=== PATIENT | male | born 1950 | race African-American/Black ===

== ENCOUNTER 2016-10-20 00:22 | Inpatient (IN) | payer OTHER ==
[2016-10-20] VITALS (7 sets, daily range): BP systolic 139–181; BP diastolic 78–102; PULSE 75–103; RESP 16–20; TEMP 97–98.5; O2SAT 93–98
[~2016-10-20] VITALS: Ht 175.3 cm; Wt 121.1 kg
[~2016-10-20 00:22] MED LIST: AMLO10TA2 PO; ASPI325T PO; LISI2.5T3 PO; MIRA33504 PO; NOVO7030P2 SQ; PRAV20TA2 PO; SENN8.6T8 PO; VENTAER INH
[2016-10-20 03:32] LABS: AUTOMATED NEUTROPHIL # 9.8 TH/MM3 (1.8-7.7); BASOPHIL # 0.1 TH/MM3 (0-0.2); BASOPHIL % 0.6 % (0.0-2.0); EOSINOPHIL # 0.1 TH/MM3 (0-0.4); EOSINOPHIL % 0.5 % (0.0-4.0); HEMATOCRIT 50.1 % (39.0-51.0); HEMO FLAGS DIFF FINAL; MEAN CELL VOLUME 88.2 FL (80.0-100.0); MEAN CORPUSCULAR HEMOGLOBIN 29.9 PG (27.0-34.0); MEAN CORPUSCULAR HGB CONC 33.9 % (32.0-36.0); NEUT % 84.9 % (16.0-70.0); PLATELET COUNT 211 TH/MM3 (150-450); RED BLOOD COUNT 5.68 MIL/MM3 (4.50-5.90); RED CELL DISTRIBUTION WIDTH 15.7 % (11.6-17.2); WHITE BLOOD COUNT 11.5 TH/MM3 (4.0-11.0)
[2016-10-20 03:46] LABS: ALT (GPT) 27 U/L (12-78); ANION GAP 7 MEQ/L (5-15); AST (GOT) 25 U/L (15-37); BICARBONATE 28.6 MEQ/L (21.0-32.0); BLOOD UREA NITROGEN 15 MG/DL (7-18); CHLORIDE 103 MEQ/L (98-107); GLOMERULAR FILTRATION RATE 56 ML/MIN (>89); POTASSIUM 4.8 MEQ/L (3.5-5.1); SODIUM (NA) 139 MEQ/L (136-145)
[2016-10-20 03:48] LABS: ALKALINE PHOSPHATASE 126 U/L (45-117); TOTAL BILIRUBIN ADULT 0.5 MG/DL (0.2-1.0)
[2016-10-20] MEDS ORDERED: SODIUM CHLORID 0.9% 500 ML INJ 500 ML IV ONE (04:30)
[2016-10-20] MEDS ORDERED: ONDANSETRON HCL 4 MG/2 ML VIAL IV PUSH ONE (04:30)
[2016-10-20] MEDS ORDERED: MORPHINE SULFATE 4 MG/ML INJ IV PUSH ONE (05:15)
[2016-10-20] MEDS ORDERED: IOHEXOL 350 MG/ML 10 ML VIAL (for RAD DIAG) IV ONE (05:19)
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
[2016-10-20] MEDS ORDERED: SODIUM CHLORIDE 0.9% FLUSH 5 ML FLUSH FLUSH PRN (06:15)
[2016-10-20] MEDS ORDERED: ONDANSETRON HCL 4 MG/2 ML VIAL IVP PRN (06:15)
[2016-10-20] MEDS ORDERED: NALOXONE HCL 0.4 MG/ML AMP IV PRN (06:15)
[2016-10-20] MEDS: SODIUM CHLOR 0.9% 1000 ML INJ 1,000 ML IV SCH ×2 (06:30→23:43)
[2016-10-20] MEDS: MORPHINE SULFATE 4 MG/ML INJ IV PUSH PRN ×6 (07:49→23:38)
[2016-10-20 08:08] LABS: BACTERIA, URINE RARE /hpf; BLOOD, URINE NEG (NEG); GLUCOSE,URINE 1000 mg/dL (NEG); KETONE, URINE 10 mg/dL (NEG); MUCUS URINE FEW /lpf (OCC); NITRITE,URINE NEG (NEG); SQUAMOUS EPITHELIAL CELL URINE <1 /hpf (0-5); URINE COLOR YELLOW (YELLW/STRAW)
[2016-10-20 08:16] LABS: COMMENT (UR) CULT NOT INDICATED; CULTURE IF INDICATED CULT NOT INDICATED
[2016-10-20] MEDS: SODIUM CHLORIDE 0.9% FLUSH 5 ML FLUSH FLUSH SCH ×2 (09:00→20:37)
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
[2016-10-20] MEDS ORDERED: GLUCAGON 1 MG/ML VIAL OTHER PRN (17:15)
[2016-10-20] MEDS ORDERED: DEXTROSE 50% IN WATER 50 ML VIAL(D50) IV PUSH PRN (17:15)
[2016-10-20] MEDS: LOW DOSE INSULIN NOVOLOG SUPPLEMENTAL SCALE SQ SCH ×2 (17:17→20:43)
--- NOTE | 2016-10-20 18:47 | EKG ---
Date Performed: 10/20/2016 Time Performed: 04:58:31 PTAGE: 66 years EKG: ATRIAL FIBRILLATION WITH RAPID VENTRICULAR RESPONSE NONSPECIFIC T-WAVE ABNORMALITY ABNORMAL ECG PREVIOUS TRACING : 08/29/2016 09.56 Compared to prior tracing no significant change DOCTOR: Ace Slater Interpretating Date/Time 10/20/2016 18:47:28
[2016-10-21] VITALS (11 sets, daily range): BP systolic 116–179; BP diastolic 64–102; PULSE 75–92; RESP 17–22; TEMP 97.6–98.9; O2SAT 92–97
[2016-10-21] MEDS: LOW DOSE INSULIN NOVOLOG SUPPLEMENTAL SCALE SQ SCH ×4 (05:26→21:00)
[2016-10-21] MEDS: MORPHINE SULFATE 4 MG/ML INJ IV PUSH PRN ×6 (05:29→22:32)
[2016-10-21 07:16] LABS: AUTOMATED NEUTROPHIL # 5.3 TH/MM3 (1.8-7.7); BASOPHIL % 0.5 % (0.0-2.0); EOSINOPHIL # 0.2 TH/MM3 (0-0.4); EOSINOPHIL % 2.8 % (0.0-4.0); HEMATOCRIT 43.5 % (39.0-51.0); HEMO FLAGS DIFF FINAL; LYMPHOCYTE # 1.2 TH/MM3 (1.0-4.8); MEAN CELL VOLUME 90.6 FL (80.0-100.0); MEAN CORPUSCULAR HEMOGLOBIN 29.3 PG (27.0-34.0); MEAN CORPUSCULAR HGB CONC 32.4 % (32.0-36.0); NEUT % 72.7 % (16.0-70.0); PLATELET COUNT 155 TH/MM3 (150-450); WHITE BLOOD COUNT 7.3 TH/MM3 (4.0-11.0)
[2016-10-21 07:45] LABS: BICARBONATE 28.3 MEQ/L (21.0-32.0); POTASSIUM 4.2 MEQ/L (3.5-5.1)
[2016-10-21] MEDS: SODIUM CHLORIDE 0.9% FLUSH 5 ML FLUSH FLUSH SCH ×2 (08:22→22:35)
[2016-10-21] MEDS ORDERED: ENALAPRILAT 1.25 MG/ML VIAL IV PUSH PRN (09:00)
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
[2016-10-21] MEDS: METOCLOPRAMIDE HCL 10 MG/2 ML VIAL IM SCH ×2 (10:12→13:35)
[2016-10-21] MEDS: SODIUM CHLOR 0.9% 1000 ML INJ 1,000 ML IV SCH ×2 (11:29→22:09)
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
[2016-10-21] MEDS ORDERED: cloNIDine HCL 0.1 MG TAB PO PRN (13:30)
[2016-10-21] MEDS: METOCLOPRAMIDE HCL 10 MG/2 ML VIAL IV SCH (22:43)
[2016-10-22] VITALS: BP 127/60; PULSE 60; RESP 15; TEMP 97.1; O2SAT 93
[2016-10-22 04:00] VITALS: BP 120/58; PULSE 61; RESP 16; TEMP 96.9; O2SAT 93
[2016-10-22] MEDS: MORPHINE SULFATE 4 MG/ML INJ IV PUSH PRN ×5 (05:51→23:49)
[2016-10-22] MEDS: METOCLOPRAMIDE HCL 10 MG/2 ML VIAL IV SCH ×3 (05:54→20:22)
[2016-10-22] MEDS: LOW DOSE INSULIN NOVOLOG SUPPLEMENTAL SCALE SQ SCH ×4 (06:00→20:38)
[2016-10-22 07:35] VITALS: BP 144/71; PULSE 88; RESP 22; TEMP 96.9; O2SAT 96
[2016-10-22] MEDS: SODIUM CHLORIDE 0.9% FLUSH 5 ML FLUSH FLUSH SCH ×2 (08:39→20:25)
[2016-10-22] MEDS: SODIUM CHLOR 0.9% 1000 ML INJ 1,000 ML IV SCH (08:44)
[2016-10-22 08:45] VITALS: PULSE 85
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
[2016-10-22 12:00] VITALS: BP 146/72; PULSE 80; RESP 22; TEMP 97.1; O2SAT 92
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
[2016-10-22] MEDS: DEXT 5%-NACL 0.45% 1000 ML INJ 1,000 ML IV SCH ×2 (14:13→23:54)
[2016-10-22 20:00] VITALS: BP 137/72; PULSE 65; RESP 16; TEMP 98; O2SAT 96
[2016-10-23] VITALS: BP 153/80; PULSE 80; RESP 18; TEMP 96.7; O2SAT 95
[2016-10-23 03:05] VITALS: PULSE 65
[2016-10-23 04:00] VITALS: BP 132/70; PULSE 58; RESP 15; TEMP 96.6; O2SAT 96
[2016-10-23] MEDS: METOCLOPRAMIDE HCL 10 MG/2 ML VIAL IV SCH (05:58)
[2016-10-23] MEDS: LOW DOSE INSULIN NOVOLOG SUPPLEMENTAL SCALE SQ SCH ×2 (06:31→12:08)
[2016-10-23 08:00] VITALS: PULSE 80
[2016-10-23 08:33] VITALS: BP 162/89; PULSE 70; RESP 18; TEMP 97.9; O2SAT 91
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
[2016-10-23] MEDS: SODIUM CHLORIDE 0.9% FLUSH 5 ML FLUSH FLUSH SCH (09:00)
[2016-10-23] MEDS: DEXT 5%-NACL 0.45% 1000 ML INJ 1,000 ML IV SCH (10:17)
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
[2016-10-23 12:21] VITALS: BP 159/84; PULSE 51; RESP 18; TEMP 97.6; O2SAT 95
== END 2016-10-23 13:49 | disposition home or self-care (01) | DRG 389 ==
LOC: NEPE 00:22 → NEDA 06:01 → NEDH 09:35 → HOCB 14:37
PROVIDERS: ADMIT Hospitalist; ATTEND Hospitalist
DX: K56.60 Unspecified intestinal obstruction (principal); N17.9 Acute kidney failure, unspecified; E11.65 Type 2 diabetes mellitus with hyperglycemia; E83.52 Hypercalcemia; N28.1 Cyst of kidney, acquired; I10 Essential (primary) hypertension; J42 Unspecified chronic bronchitis; M19.90 Unspecified osteoarthritis, unspecified site; Z90.5 Acquired absence of kidney; Z79.4 Long term (current) use of insulin
CPT/HCPCS: 74020; 74177; 80048; 80053; 81001; 82948; 83605; 83690; 85025; 93005; 96361; 96374; 96375; J1815; J2270; J2405; J2765; J7030; J7040; Q9967

== ENCOUNTER 2016-10-25 09:48 | Emergency (ER) | payer OTHER ==
[~2016-10-25] VITALS: Ht 175.3 cm; Wt 120.0 kg
[2016-10-25 10:08] VITALS: BP 184/114; PULSE 92; RESP 20; TEMP 97.8; O2SAT 93
[2016-10-25 10:20] VITALS: BP 190/104; PULSE 96; RESP 20; O2SAT 96
[2016-10-25] MEDS ORDERED: SODIUM CHLOR 0.9% 1000 ML INJ 1,000 ML IV SCH (10:37)
[2016-10-25] MEDS ORDERED: ONDANSETRON HCL 4 MG/2 ML VIAL IVP ONE (10:45)
[2016-10-25] MEDS ORDERED: MORPHINE SULFATE 4 MG/ML INJ IV PUSH ONE ×2 (10:45→11:45)
[2016-10-25] MEDS ORDERED: SODIUM CHLORIDE 0.9% FLUSH 5 ML FLUSH IVF PRN (10:45)
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
[2016-10-25 11:22] LABS: AUTOMATED NEUTROPHIL # 4.7 TH/MM3 (1.8-7.7); BASOPHIL % 0.3 % (0.0-2.0); EOSINOPHIL # 0.1 TH/MM3 (0-0.4); EOSINOPHIL % 2.3 % (0.0-4.0); HEMATOCRIT 46.8 % (39.0-51.0); HEMO FLAGS DIFF FINAL; LYMPH % 13.9 % (9.0-44.0); LYMPHOCYTE # 0.9 TH/MM3 (1.0-4.8); MEAN CELL VOLUME 88.8 FL (80.0-100.0); MEAN CORPUSCULAR HEMOGLOBIN 29.5 PG (27.0-34.0); MEAN CORPUSCULAR HGB CONC 33.2 % (32.0-36.0); MONO % 7.2 % (0.0-8.0); NEUT % 76.3 % (16.0-70.0); PLATELET COUNT 176 TH/MM3 (150-450); RED BLOOD COUNT 5.26 MIL/MM3 (4.50-5.90); RED CELL DISTRIBUTION WIDTH 15.6 % (11.6-17.2); WHITE BLOOD COUNT 6.1 TH/MM3 (4.0-11.0)
[2016-10-25 11:38] LABS: BICARBONATE 26.5 MEQ/L (21.0-32.0)
[2016-10-25 11:41] LABS: POTASSIUM 4.6 MEQ/L (3.5-5.1)
[2016-10-25] MEDS ORDERED: DIATRIZOATE MEGLUM/DIATRIZOATE SOD 9 ML CUP ONE (12:02)
[2016-10-25] MEDS ORDERED: IOHEXOL 350 MG/ML 10 ML VIAL (for RAD DIAG) IV ONE (13:38)
--- NOTE | 2016-10-25 14:18 | RADRPT ---
EXAM DATE/TIME: 10/25/2016 13:20 [facility] COMPARISON: CT ABDOMEN & PELVIS W CONTRAST, September 20, 2015, 20:35. CT ABDOMEN & PELVIS W CONTRAST, October, 5:15. INDICATIONS : Worsening lower abdomen pain for two days. IV CONTRAST: 95 cc Omnipaque 350 (iohexol) IV ORAL CONTRAST: No oral contrast ingested. RADIATION DOSE: 26.25 CTDIvol (mGy) MEDICAL HISTORY : Hypertension. diabetes SURGICAL HISTORY : None. ENCOUNTER: Initial ACUITY: 2 days PAIN SCALE: 10/10 LOCATION: Bilateral lower quadrant TECHNIQUE: Volumetric scanning of the abdomen and pelvis was performed. Using automated exposure control and ad justment of the mA and/or kV according to patient size, radiation dose was kept as low as reasonably achievable to obtain optimal diagnostic quality images. FINDINGS: LOWER LUNGS: Stable sub-centimeters groundglass density in the right middle lobe. Lung bases are otherwise clear LIVER: Punctate granulomatous type calcification in the right hepatic lobe. Otherwise, homogeneous density. There is no dilation of the biliary tree. No calcified gallstones. SPLEEN: Normal size without lesion. PANCREAS: Within normal limits. KIDNEYS: Patient status post right nephrectomy for parapelvic and cortical cysts on the remaining left kidney are stable ADRENAL GLANDS: Within normal limits. VASCULAR: There is no aortic aneurysm. BOWEL/MESENTERY: Focal area of pericolonic inflammatory changes in the region of the sigmoid colon correspond to a foc al area of what appears to be desiccated stool with decompression of the colon proximal and distal to this location. Minimal, scattered diverticula. ABDOMINAL WALL: Small umbilical hernia measures 2.8 cm in diameter it only contains fat. RETROPERITONEUM: There is no lymphadenopathy. BLADDER: No wall thickening or mass. REPRODUCTIVE: Within normal limits. INGUINAL: There is no lymphadenopathy or hernia. MUSCULOSKELETAL: Within normal limits for patient age. CONCLUSION: 1. Minimal pericolonic stranding in the region of the sigmoid. Focal stool ball in the same area pers ists over the past 5 days and may represent a focal area of atony associated with uncomplicated diver ticulitis. 2. Patient is status post right nephrectomy. Benign-appearing cortical and parapelvic cysts on the le ft. 3. A 2.8 cm paraumbilical hernia only contains fat. 4. Stable 7 mm groundglass nodule in the right middle lobe is nonspecific. Recommend followup in 6 mo nths to ensure stability. Yusuf Rae MD on October 25, 2016 at 14:00 Board Certified Radiologist. This report was verified electronically.
[2016-10-25] MEDS ORDERED: COLY4000S PO (14:30)
[2016-10-25 14:50] VITALS: BP 189/91
== END 2016-10-25 14:50 | disposition home or self-care (01) ==
LOC: NEPA 09:48
DX: R10.84 Generalized abdominal pain (principal); I10 Essential (primary) hypertension; E11.9 Type 2 diabetes mellitus without complications; Z79.4 Long term (current) use of insulin; Z87.39 Personal history of other diseases of the musculoskeletal system and connective tissue; Z87.19 Personal history of other diseases of the digestive system; Z87.448 Personal history of other diseases of urinary system
CPT/HCPCS: 74177; 80048; 83605; 85025; 96374; 96375; 99284; J2270; J2405; J7030; Q9963; Q9967

== ENCOUNTER 2016-10-28 12:13 | Inpatient (IN) | payer OTHER ==
[~2016-10-28] VITALS: Ht 175.3 cm; Wt 120.0 kg
[~2016-10-28 12:13] MED LIST changes: +COLY4000S PO
[2016-10-28 12:15] VITALS: BP 180/106; PULSE 98; RESP 28; TEMP 98.7; O2SAT 93
[2016-10-28 20:00] VITALS: BP 156/88; PULSE 100; RESP 18; O2SAT 96
[2016-10-28] MEDS ORDERED: SODIUM CHLORIDE 0.9% FLUSH 5 ML FLUSH IVF PRN (20:00)
[2016-10-28] MEDS ORDERED: methylPREDNISolone SOD SUCC 125 MG/2 ML VIAL IVP ONE (20:00)
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
[2016-10-28] MEDS: RESP: ALBUTEROL 2.5 MG/IPRATROPIUM 0.5 MG NEB (SCH) INH ×3 (20:13→20:51)
--- NOTE | 2016-10-28 20:24 | RADRPT ---
EXAM DATE/TIME: 10/28/2016 19:59 [facility] COMPARISON: CHEST SINGLE AP, January 31, 2016, 5:09. INDICATIONS : Short of breath MEDICAL HISTORY : Hypertension. Diabetes mellitus type II. SURGICAL HISTORY : None. ENCOUNTER: Initial ACUITY: 2 days PAIN SCORE: 0/10 LOCATION: Bilateral chest FINDINGS: A single view of the chest demonstrates the lungs to be symmetrically aerated without evidence of mas s, infiltrate or effusion. The cardiomediastinal contours are unremarkable. Osseous structures are intact. CONCLUSION: No acute disease. Vaibhav Galeano MD on October 28, 2016 at 20:22 Board Certified Radiologist. This report was verified electronically.
[2016-10-28 21:06] LABS: AUTOMATED NEUTROPHIL # 3.6 TH/MM3 (1.8-7.7); BASOPHIL % 0.3 % (0.0-2.0); EOSINOPHIL # 0.1 TH/MM3 (0-0.4); EOSINOPHIL % 1.1 % (0.0-4.0); HEMATOCRIT 44.6 % (39.0-51.0); HEMO FLAGS DIFF FINAL; LYMPH % 19.9 % (9.0-44.0); LYMPHOCYTE # 1.1 TH/MM3 (1.0-4.8); MEAN CELL VOLUME 89.1 FL (80.0-100.0); MEAN CORPUSCULAR HEMOGLOBIN 29.3 PG (27.0-34.0); MEAN CORPUSCULAR HGB CONC 32.8 % (32.0-36.0); MONO % 14.2 % (0.0-8.0); NEUT % 64.5 % (16.0-70.0); PLATELET COUNT 185 TH/MM3 (150-450); RED BLOOD COUNT 5.01 MIL/MM3 (4.50-5.90); RED CELL DISTRIBUTION WIDTH 15.9 % (11.6-17.2); WHITE BLOOD COUNT 5.7 TH/MM3 (4.0-11.0)
[2016-10-28 21:12] LABS: PROTHROMBIN TIME - PATIENT 10.7 SEC (9.8-11.6)
[2016-10-28 21:19] LABS: BICARBONATE 28.6 MEQ/L (21.0-32.0)
[2016-10-28 21:35] LABS: CKMB 2.4 NG/ML (0.5-3.6)
[2016-10-28] MEDS ORDERED: IODIXANOL 320 MG/ML 10 ML VIAL (for Rad CT) IV ONE (21:50)
[2016-10-28 22:00] VITALS: BP 159/91; PULSE 105; RESP 18; O2SAT 95
[2016-10-28] MEDS ORDERED: KETOROLAC TROMETHAMINE 30 MG/ML (IVP) VIAL IV PUSH ONE (22:15)
--- NOTE | 2016-10-28 22:24 | RADRPT ---
EXAM DATE/TIME: 10/28/2016 21:43 [facility] COMPARISON: CT ABDOMEN & PELVIS W CONTRAST, October 25, 2016, 13:20. INDICATIONS : Nausea, vomiting and abdominal pain. IV CONTRAST: 50 cc Visipaque (iodixanol) IV ORAL CONTRAST: No oral contrast ingested. RADIATION DOSE: 22.38 CTDIvol (mGy) MEDICAL HISTORY : Arthritis. Diabetes mellitus type 1. SURGICAL HISTORY : Nephrectomy, right. ENCOUNTER: Initial ACUITY: 1 day PAIN SCALE: 5/10 LOCATION: Bilateral lower quadrant TECHNIQUE: Volumetric scanning of the abdomen and pelvis was performed. Using automated exposure control and adjustment of the mA and/or kV according to patient size, radiation dose was kept as low as reasonably achievable to obtain optimal diagnostic quality images. FINDINGS: There is fatty infiltration of the liver. There is a calcified granuloma seen at the li miranda. There is a small subcentimeter hyperdensity identified in the superior aspect of the right lobe of the liver. This is nonspecific. Statistically it likely represents a cyst or hemangioma. The s pleen, pancreas and adrenal glands are normal. The patient is status post right nephrectomy. There is a 3.3 cm cystic area seen in the central aspect of the left kidney likely representing a prominent parapelvic cyst. Hydronephrosis is not seen. There does appear to be dilatation of the small bowel in the mid abdomen. There is a suspected area of focal stenosis at the mid small bowel. There does appear to be debris seen in the small bowel adj acent to this area of stenosis. The colon is not distended. There is some minimal thickening of the left paracolic gutter. The pelvic structures appear grossly intact. The lung bases are clear. The bony structures are grossly intact. There is some degenerative change in the lumbar spine. There i s an umbilical hernia containing only mesenteric fat. CONCLUSION: 1. Dilated small bowel with a possible area of transition in the mid small bowel concerning for some degree of small bowel obstruction. There appears to be a focal area of stenosis at the mid small amber l. 2. Fatty infiltration of the liver with a suspected small cyst or hemangioma in the right lobe of the liver. 3. Status post right nephrectomy. 4. 3.3 cm suspected left parapelvic cyst. Vaibhav Galeano MD on October 28, 2016 at 22:08 Board Certified Radiologist. This report was verified electronically.
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
[2016-10-29] VITALS (12 sets, daily range): BP systolic 120–187; BP diastolic 83–108; PULSE 79–102; RESP 18–26; TEMP 97.4–98.6; O2SAT 94–100
[2016-10-29] MEDS ORDERED: ONDANSETRON HCL 4 MG/2 ML VIAL IVP PRN
[2016-10-29] MEDS ORDERED: ACETAMINOPHEN 1000 MG/100 ML VIAL IV PRN
[2016-10-29] MEDS ORDERED: BISACODYL 10 MG SUPP PR PRN
[2016-10-29] MEDS ORDERED: GLUCAGON 1 MG/ML VIAL OTHER PRN
[2016-10-29] MEDS ORDERED: SODIUM CHLORIDE 0.9% FLUSH 5 ML FLUSH FLUSH PRN
[2016-10-29] MEDS ORDERED: MORPHINE SULFATE 4 MG/ML INJ IV PRN
[2016-10-29] MEDS ORDERED: DEXTROSE 50% IN WATER 50 ML VIAL(D50) IV PUSH PRN
[2016-10-29 00:41] LABS: BLOOD GAS BASE EXCESS 0.2 mmol/L (-2-2); BLOOD GAS CARBOXYHEMOGLOBIN 1.3 % (0-4); BLOOD GAS HCO3 25 mmol/L (22-26); BLOOD GAS METHEMOGLOBIN 0.9 % (0-2); BLOOD GAS O2 HGB SATURATION 95 % (90-100); BLOOD GAS OXYGEN CONTENT 20.5 Vol % (12.0-20.0); BLOOD GAS PCO2 42 mmHg (38-42); BLOOD GAS PO2 95 mmHg (61-120); BLOOD GAS TOTAL HGB 15.2 G/DL (12.0-16.0); TEMP CORR TO 98.6
[2016-10-29 00:42] LABS: CRITICAL VALUE NO; DRAW SITE RT RADIAL; LITER FLOW 2 L/M; NUMBER OF ARTERIAL PUNCTURES 1; OXYGEN DEVICE NASAL CANNULA; STAT YES; ULNAR PULSE PRESENT
--- NOTE | 2016-10-29 01:13 | RADRPT ---
EXAM DATE/TIME: 10/29/2016 00:43 [facility] COMPARISON: No previous studies available for comparison. INDICATIONS : Evaluate for NG tube placement. MEDICAL HISTORY : None. SURGICAL HISTORY : None. ENCOUNTER: Initial ACUITY: 1 day PAIN SCORE: 0/10 LOCATION: Abdomen FINDINGS: Examination of the abdomen demonstrates gaseous distention of the small bowel with air fluid levels m ost consistent with ileus .There are no findings of small bowel obstruction. No free air is identifie d. No organomegaly is evident. Nasogastric tube is coiled in the esophagus. CONCLUSION: No evidence of obstruction.Nasogastric tube coiled in the esophagus David Farley MD on October 29, 2016 at 1:11 Board Certified Radiologist. This report was verified electronically.
[2016-10-29] MEDS: MORPHINE SULFATE 4 MG/ML INJ IV PRN ×7 (01:40→23:14)
[2016-10-29] MEDS: PANTOPRAZOLE SODIUM 40 MG VIAL IV PUSH SCH ×3 (01:57→23:24)
[2016-10-29] MEDS: SODIUM CHLOR 0.9% 1000 ML INJ 1,000 ML IV SCH ×3 (02:37→12:38)
[2016-10-29 05:19] LABS: BASOPHIL % 0.2 % (0.0-2.0); EOSINOPHIL % 0.1 % (0.0-4.0); HEMATOCRIT 43.6 % (39.0-51.0); HEMO FLAGS DIFF FINAL; LYMPH % 5.3 % (9.0-44.0); LYMPHOCYTE # 0.3 TH/MM3 (1.0-4.8); MEAN CELL VOLUME 90.3 FL (80.0-100.0); MEAN CORPUSCULAR HEMOGLOBIN 29.2 PG (27.0-34.0); MEAN CORPUSCULAR HGB CONC 32.4 % (32.0-36.0); MONO % 2.7 % (0.0-8.0); NEUT % 91.7 % (16.0-70.0); PLATELET COUNT 172 TH/MM3 (150-450); RED BLOOD COUNT 4.82 MIL/MM3 (4.50-5.90); RED CELL DISTRIBUTION WIDTH 15.9 % (11.6-17.2); WHITE BLOOD COUNT 5.4 TH/MM3 (4.0-11.0)
[2016-10-29 05:32] LABS: ALKALINE PHOSPHATASE 108 U/L (45-117); ALT (GPT) 30 U/L (12-78); ANION GAP 10 MEQ/L (5-15); AST (GOT) 21 U/L (15-37); BICARBONATE 25.7 MEQ/L (21.0-32.0); BLOOD UREA NITROGEN 13 MG/DL (7-18); CHLORIDE 101 MEQ/L (98-107); GLOMERULAR FILTRATION RATE 52 ML/MIN (>89); POTASSIUM 4.5 MEQ/L (3.5-5.1); SODIUM (NA) 137 MEQ/L (136-145); TOTAL BILIRUBIN ADULT 0.3 MG/DL (0.2-1.0)
[2016-10-29] MEDS: RESP: ALBUTEROL 2.5 MG/IPRATROPIUM 0.5 MG NEB (PRN) NEB ×2 (07:38→11:19)
[2016-10-29] MEDS: INSULIN ASPART SUPPLEMENTAL SCALE SQ SCH ×5 (09:08→21:00)
[2016-10-29] MEDS: SODIUM CHLORIDE 0.9% FLUSH 5 ML FLUSH FLUSH SCH ×2 (09:11→19:59)
--- NOTE | 2016-10-29 13:07 | EKG ---
Date Performed: 10/28/2016 Time Performed: 20:40:10 PTAGE: 66 years EKG: Sinus rhythm WITH OCCASIONAL SUPRAVENTRICULAR PREMATURE COMPLEXES NONSPECIFIC T-WAVE ABNORMALITY POSSIBLE INFERIO R INJURY, AGE UNDETERMINED POOR R WAVE PROGRESSION IN THE ANTERIOR PRECORDIUM LARGELY UNCHANGED FROM PRIOR TRACING. BORDERLINE ECG PREVIOUS TRACING : 10/28/2016 20.38 DOCTOR: Eulogio Roberts Interpretating Date/Time 10/29/2016 13:07:31
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
[2016-10-29] MEDS ORDERED: cloNIDine HCL 0.1 MG TAB PO PRN (20:00)
[2016-10-29] MEDS: INSULIN DETEMIR 100 UNITS/ML VIAL SQ SCH (21:00)
--- NOTE | 2016-10-29 22:25 | MB ---
cc: JEFF CARO M.D. DATE OF CONSULTATION 10/29/2016 REASON FOR CONSULTATION Small bowel obstruction. HISTORY OF PRESENT ILLNESS The patient is a 56-year-old -[place] male who has had previous admissions for bowel obstruction in May of last year, August last year, October 20 of this year and currently. The patient had CT scan of the abdomen, pelvis which demonstrates dilatation of the small bowel in the mid abdomen with a suspected area of focal stenosis in the mid small bowel. There is some minimal thickening of the left paracolic gutter as well. CT last week demonstrated a pericolonic inflammatory changes in the region of the sigmoid colon and small umbilical hernia. This did not appear to be small bowel obstruction at that time. The CT on October 20 demonstrates abnormal dilated loops of small bowel overall similar to the CT exam on August 30. Laboratory values demonstrate WBCs of 5.4. Chemistries demonstrate BUN of 13, creatinine of 1.62. Coags demonstrate INR of 1.0. PHYSICAL EXAMINATION GENERAL: An -[place] male who is slightly uncomfortable. VITAL SIGNS: BP 155/91, pulse 79, respirations 18, temperature 97.4, 94% saturation on room air. HEENT: Sclerae anicteric. Pupils reactive. NECK: Supple. Throat is clear. CHEST: Clear to auscultation. ABDOMEN: Soft, distended with a midline incision scar. ASSESSMENT Partial small-bowel obstruction, recurrent. PLAN I have discussed with the patient and his significant other the considered need for operative intervention given the frequency of his admissions recently. He does not require any surgery today as he is has a normal white count and is not acutely ill. I have recommended they consider surgery next week some time as he appears to have a mild bronchitis. I have discussed preliminarily some risks of the procedure with him having an increased risk due to his obesity, sleep apnea and diabetes. We will follow him with you. MD RADHA Moreira/ /9:43 PM /10:14 PM
[2016-10-30] VITALS: BP 144/78; PULSE 80; RESP 18; TEMP 96.4; O2SAT 96
[2016-10-30 02:25] VITALS: O2SAT 98
[2016-10-30] MEDS: SODIUM CHLOR 0.9% 1000 ML INJ 1,000 ML IV SCH ×4 (04:37→17:30)
[2016-10-30] MEDS: MORPHINE SULFATE 4 MG/ML INJ IV PRN ×5 (04:45→21:33)
[2016-10-30] MEDS: INSULIN ASPART SUPPLEMENTAL SCALE SQ SCH ×4 (04:45→21:40)
[2016-10-30 05:06] LABS: AUTOMATED NEUTROPHIL # 5.7 TH/MM3 (1.8-7.7); BASOPHIL % 0.2 % (0.0-2.0); EOSINOPHIL % 0.3 % (0.0-4.0); HEMATOCRIT 40.4 % (39.0-51.0); HEMO FLAGS DIFF FINAL; LYMPH % 14.2 % (9.0-44.0); LYMPHOCYTE # 1.1 TH/MM3 (1.0-4.8); MEAN CELL VOLUME 89.9 FL (80.0-100.0); MEAN CORPUSCULAR HEMOGLOBIN 28.9 PG (27.0-34.0); MEAN CORPUSCULAR HGB CONC 32.2 % (32.0-36.0); MONO % 10.1 % (0.0-8.0); NEUT % 75.2 % (16.0-70.0); PLATELET COUNT 179 TH/MM3 (150-450); RED CELL DISTRIBUTION WIDTH 15.9 % (11.6-17.2); WHITE BLOOD COUNT 7.6 TH/MM3 (4.0-11.0)
[2016-10-30 05:32] LABS: ALKALINE PHOSPHATASE 86 U/L (45-117); ALT (GPT) 23 U/L (12-78); ANION GAP 6 MEQ/L (5-15); AST (GOT) 16 U/L (15-37); BICARBONATE 29.2 MEQ/L (21.0-32.0); BLOOD UREA NITROGEN 15 MG/DL (7-18); CHLORIDE 108 MEQ/L (98-107); GLOMERULAR FILTRATION RATE 74 ML/MIN (>89); MAGNESIUM 2.1 MG/DL (1.5-2.5); SODIUM (NA) 143 MEQ/L (136-145); TOTAL BILIRUBIN ADULT 0.4 MG/DL (0.2-1.0)
[2016-10-30 08:00] VITALS: BP 170/83; PULSE 73; RESP 16; TEMP 96.8; O2SAT 93
[2016-10-30] MEDS: SODIUM CHLORIDE 0.9% FLUSH 5 ML FLUSH FLUSH SCH ×2 (09:00→21:35)
[2016-10-30] MEDS ORDERED: INFLUENZA VIRUS VACCINE (QUADRIVALENT) 0.5 ML SYR IM ONE (10:00)
[2016-10-30] MEDS: PANTOPRAZOLE SODIUM 40 MG VIAL IV PUSH SCH (11:47)
[2016-10-30 12:00] VITALS: BP_SYST 162; BP_SYST 173; BP_DIAS 107; BP_DIAS 79; PULSE 56; RESP 13; TEMP 97.7; O2SAT 95
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
[2016-10-30] MEDS ORDERED: RESP: ALBUTEROL 2.5 MG/IPRATROPIUM 0.5 MG NEB (PRN) NEB (15:15)
--- NOTE | 2016-10-30 15:25 | HHI.PR ---
Subjective Subjective Notes Patient reports he is passing flatus and had BM x 2 Wants NG out Refuses surgery this time, even though this is third visit in last six weeks for the same problem Objective Vitals/I&O Vital Signs Date Time Temp Pulse Resp B/P Pulse Ox O2 Delivery O2 Flow Rate FiO2 10/30/16 12:00 97.7 56 13 173/107 95 162/79 10/30/16 02:25 40 10/29/16 09:13 Room Air 10/28/16 12:15 9 Labs Laboratory Tests Test 10/30/16 04:28 White Blood Count 7.6 Red Blood Count 4.50 Hemoglobin 13.0 Hematocrit 40.4 Mean Corpuscular Volume 89.9 Mean Corpuscular Hemoglobin 28.9 Mean Corpuscular Hemoglobin 32.2 Concent Red Cell Distribution Width 15.9 Platelet Count 179 Mean Platelet Volume 8.9 Neutrophils (%) (Auto) 75.2 Lymphocytes (%) (Auto) 14.2 Monocytes (%) (Auto) 10.1 Eosinophils (%) (Auto) 0.3 Basophils (%) (Auto) 0.2 Neutrophils # (Auto) 5.7 Lymphocytes # (Auto) 1.1 Monocytes # (Auto) 0.8 Eosinophils # (Auto) 0.0 Basophils # (Auto) 0.0 CBC Comment DIFF FINAL Differential Comment Sodium Level 143 Potassium Level 4.0 Chloride Level 108 Carbon Dioxide Level 29.2 Anion Gap 6 Blood Urea Nitrogen 15 Creatinine 1.20 Estimat Glomerular Filtration 74 Rate Random Glucose 140 Calcium Level 8.1 Phosphorus Level 2.3 Magnesium Level 2.1 Total Bilirubin 0.4 Aspartate Amino Transf 16 (AST/SGOT) Alanine Aminotransferase 23 (ALT/SGPT) Alkaline Phosphatase 86 Total Protein 6.4 Albumin 2.8 Date/Time Procedure Status Source Growth 10/28/16 22:00 Influenza Types A,B Antigen (MAGNOLIA) - Final Complete Nasal Aspirate Positive For Flu A Antigen 10/28/16 20:05 Aerobic Blood Culture - Preliminary Resulted Blood Peripheral NO GROWTH IN 2 DAYS 10/28/16 20:05 Anaerobic Blood Culture - Preliminary Resulted Blood Peripheral NO GROWTH IN 2 DAYS Abdomen: Non-tender, Other (Moderate distention, but less than yesterday) A/P Assessment and Plan SBO, resolving again. Has bronchitis and respiratory status not ideal during this hospitalization for surgery anyway. Plan: Remove NG Start liquids; Patient agrees that if he comes in again, he will undergo surgery. Payam Rosado MD Oct 30, 2016 15:25
[2016-10-30 16:00] VITALS: BP_SYST 170; BP_SYST 182; BP_DIAS 80; BP_DIAS 86; PULSE 72; RESP 15; TEMP 98; O2SAT 95
--- NOTE | 2016-10-30 16:09 | RADRPT ---
EXAM DATE/TIME: 10/30/2016 15:40 [facility] COMPARISON: CHEST SINGLE AP, October 28, 2016, 19:59. INDICATIONS : Shortness of breath. MEDICAL HISTORY : Hypertension. Diabetes mellitus type II. SURGICAL HISTORY : None. ENCOUNTER: Initial ACUITY: 1 day PAIN SCORE: 0/10 LOCATION: Bilateral chest FINDINGS: A single view of the chest demonstrates mild basilar airspace disease. No effusion. No pneumothorax. Heart size mildly enlarged. CONCLUSION: Mild basilar airspace disease. No significant effusion. No pneumothorax. William Dyer MD on October 30, 2016 at 16:06 Board Certified Radiologist. This report was verified electronically.
[2016-10-30 20:25] VITALS: BP 158/77; PULSE 78; RESP 18; TEMP 98.3; O2SAT 94
[2016-10-30] MEDS: RESP: ALBUTEROL 2.5 MG/IPRATROPIUM 0.5 MG NEB (SCH) NEB (20:33)
[2016-10-30] MEDS: INSULIN DETEMIR 100 UNITS/ML VIAL SQ SCH (21:00)
[2016-10-31] VITALS (8 sets, daily range): BP systolic 141–166; BP diastolic 80–86; PULSE 64–88; RESP 16–21; TEMP 96.4–98.8; O2SAT 92–98
[2016-10-31] MEDS: PANTOPRAZOLE SODIUM 40 MG VIAL IV PUSH SCH ×2 (00:49→12:17)
[2016-10-31] MEDS: MORPHINE SULFATE 4 MG/ML INJ IV PRN ×4 (00:49→10:53)
[2016-10-31] MEDS: SODIUM CHLOR 0.9% 1000 ML INJ 1,000 ML IV SCH ×2 (03:53→14:40)
[2016-10-31] MEDS: INSULIN ASPART SUPPLEMENTAL SCALE SQ SCH ×4 (06:36→21:09)
[2016-10-31] MEDS: SODIUM CHLORIDE 0.9% FLUSH 5 ML FLUSH FLUSH SCH ×2 (08:21→21:00)
[2016-10-31] MEDS: RESP: ALBUTEROL 2.5 MG/IPRATROPIUM 0.5 MG NEB (SCH) NEB ×3 (08:22→19:44)
--- NOTE | 2016-10-31 10:36 | HHI.PR ---
Subjective Subjective Notes Tolerating po clears, having BMs. Wants to advance diet and avoid surgery. Objective Vitals/I&O Vital Signs Date Time Temp Pulse Resp B/P Pulse Ox O2 Delivery O2 Flow Rate FiO2 10/31/16 08:23 93 21 10/31/16 08:00 96.4 64 16 158/84 10/29/16 09:13 Room Air 10/28/16 12:15 9 Labs Date/Time Procedure Status Source Growth 10/28/16 22:00 Influenza Types A,B Antigen (MAGNOLIA) - Final Complete Nasal Aspirate Positive For Flu A Antigen 10/28/16 20:05 Aerobic Blood Culture - Preliminary Resulted Blood Peripheral NO GROWTH IN 2 DAYS 10/28/16 20:05 Anaerobic Blood Culture - Preliminary Resulted Blood Peripheral NO GROWTH IN 2 DAYS Abdomen: Non-tender, Other (Mildly distended, normal BS, partially reducible UH , widened midline scar, other smaller scars off midline.) Extremities: No edema, Perfused A/P Assessment and Plan Resolving, recurrent SBO. advance diet, possible DC tomorrow. High risk for recurrence. David Chaney MD Oct 31, 2016 10:36
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
[2016-10-31] MEDS ORDERED: NORC5TAB PO (11:24)
[2016-10-31] MEDS ORDERED: ACETAMINOPHEN/HYDROcodone 325 MG/5 MG TAB PO PRN (11:30)
[2016-10-31] MEDS ORDERED: NALOXONE HCL 0.4 MG/ML AMP IV PRN (11:30)
[2016-10-31] MEDS ORDERED: MORPHINE SULFATE 4 MG/ML INJ IV PRN ×2 (13:00)
[2016-10-31] MEDS: ACETAMINOPHEN/HYDROcodone 325 MG/10 MG TAB PO PRN ×2 (14:39→21:06)
[2016-10-31] MEDS: INSULIN DETEMIR 100 UNITS/ML VIAL SQ SCH (21:06)
[2016-11-01] MEDS: PANTOPRAZOLE SODIUM 40 MG VIAL IV PUSH SCH ×2 (00:11→12:00)
[2016-11-01 00:35] VITALS: BP 145/84; PULSE 85; RESP 21; TEMP 98; O2SAT 93
[2016-11-01] MEDS: ACETAMINOPHEN/HYDROcodone 325 MG/10 MG TAB PO PRN (06:36)
[2016-11-01] MEDS: SODIUM CHLOR 0.9% 1000 ML INJ 1,000 ML IV SCH (06:39)
[2016-11-01] MEDS: INSULIN ASPART SUPPLEMENTAL SCALE SQ SCH ×3 (06:45→16:00)
[2016-11-01 08:00] VITALS: BP 156/88; PULSE 67; RESP 19; TEMP 98.5; O2SAT 97
[2016-11-01] MEDS: SODIUM CHLORIDE 0.9% FLUSH 5 ML FLUSH FLUSH SCH (09:00)
[2016-11-01 09:12] VITALS: O2SAT 94
[2016-11-01] MEDS: RESP: ALBUTEROL 2.5 MG/IPRATROPIUM 0.5 MG NEB (SCH) NEB ×2 (09:12→14:31)
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
--- NOTE | 2016-11-01 11:16 | HHI.PR ---
Subjective Subjective Notes Resting in bed Had ambulated in room and in hallways Objective Vitals/I&O Vital Signs Date Time Temp Pulse Resp B/P Pulse Ox O2 Delivery O2 Flow Rate FiO2 11/01/16 09:12 94 11/01/16 08:00 98.5 67 19 156/88 10/31/16 08:23 21 10/29/16 09:13 Room Air 10/28/16 12:15 9 Labs Date/Time Procedure Status Source Growth 10/28/16 22:00 Influenza Types A,B Antigen (MAGNOLIA) - Final Complete Nasal Aspirate Positive For Flu A Antigen 10/28/16 20:05 Aerobic Blood Culture - Preliminary Resulted Blood Peripheral NO GROWTH IN 4 DAYS 10/28/16 20:05 Anaerobic Blood Culture - Preliminary Resulted Blood Peripheral NO GROWTH IN 4 DAYS Cardiovascular: Regular Lungs: Clear Abdomen: Non-distended, Non-tender Extremities: No edema A/P Assessment and Plan 66 year old male with PSBO -Tolerating heart healthy diet -OOB and mobilized -+BM -Mr. Fritz cleared for DC from GS standpoint -Follow up with Dr. Rosado if needed in the office -It was explained that patient has a high reoccurrence rate for SBO due to multiple episodes of SBO in the past, with the last time a week ago and the time before that in Aug 2016. Attending Note - Dr. Rosado Abdomen soft and nondistended. Above explained to patient; he agrees to surgery if SBO occurs again; related he will need a small segment of bowel resected, as it appears narrow on CT. The exam, history, and the medical decision-making described in the above note were completed with the assistance of the mid-level provider. I reviewed and agree with the findings presented. I attest that I had a [id number] encounter with the patient on the same day, and personally performed and documented my assessment and findings in the medical record. Sierra Bermudez Nov 01, 2016 11:16 Payam Rosado MD Nov 04, 2016 18:23
[2016-11-01 12:00] VITALS: BP 141/87; PULSE 87; RESP 18; TEMP 98.2; O2SAT 97
[2016-11-01 16:00] VITALS: BP 157/84; PULSE 93; RESP 18; TEMP 98.1; O2SAT 95
== END 2016-11-01 18:08 | disposition home or self-care (01) | DRG 389 ==
LOC: NEPC 12:13 → NEDA 23:46 → NEDH 10-29 03:46 → N07A 10-29 11:50
PROVIDERS: ADMIT Hospitalist; ATTEND Hospitalist
DX: K56.60 Unspecified intestinal obstruction (principal); N17.9 Acute kidney failure, unspecified; K76.0 Fatty (change of) liver, not elsewhere classified; N18.3 Chronic kidney disease, stage 3 (moderate); E11.65 Type 2 diabetes mellitus with hyperglycemia; I12.9 Hypertensive chronic kidney disease with stage 1 through stage 4 chronic kidney disease, or unspecified chronic kidney disease; Z79.4 Long term (current) use of insulin; E66.01 Morbid (severe) obesity due to excess calories; Z68.39 Body mass index [BMI] 39.0-39.9, adult; J11.1 Influenza due to unidentified influenza virus with other respiratory manifestations; G47.30 Sleep apnea, unspecified; E78.5 Hyperlipidemia, unspecified; Z90.5 Acquired absence of kidney
CPT/HCPCS: 36600; 71010; 74000; 74177; 80048; 80053; 82550; 82552; 82805; 82948; 83605; 83690; 83735; 83880; 84100; 84484; 85025; 85610; 85730; 87040; 87804; 93005; 94002; 94003; 94640; 94664; 96374; 96375; C9113; J1815; J1885; J2270; J2930; J7030; Q9967

== ENCOUNTER 2017-03-13 21:09 | Emergency (ER) | payer OTHER ==
[~2017-03-13] VITALS: Ht 175.3 cm; Wt 125.0 kg
[~2017-03-13 21:09] MED LIST changes: +NORC5TAB PO
[2017-03-13 21:10] VITALS: BP 153/102; PULSE 97; RESP 16; TEMP 97.5; O2SAT 96
--- NOTE | 2017-03-13 22:14 | PD ---
Physical Exam Date Seen by Provider: Mar 13, 2017 Time Seen by Provider: 22:11 Data Data Last Documented VS Vital Signs Date Time Temp Pulse Resp B/P Pulse Ox O2 Delivery O2 Flow Rate FiO2 03/13/17 21:10 97.5 97 16 153/102 96 Room Air MDM Supervised Visit with ARUN: No Narrative Course 66 YO M with complaint of 10/10 abdominal pain x 2 days. +N/V. ---F/C,diarrhea, dysuria. LBM today. Hx SBO. Vitals reviewed. Patient seen in triage, awaiting bed placement. Bruna Hernandez Mar 13, 2017 22:14
[2017-03-14] VITALS: BP 143/84; PULSE 84; RESP 18; O2SAT 100
[2017-03-14 01:00] VITALS: RESP 18; O2SAT 100
[2017-03-14] MEDS ORDERED: SODIUM CHLORID 0.9% 500 ML INJ 500 ML IV ONE ×2 (01:00→02:15)
[2017-03-14] MEDS ORDERED: ONDANSETRON HCL 4 MG/2 ML VIAL IV PUSH ONE (01:00)
[2017-03-14] MEDS ORDERED: MORPHINE SULFATE 4 MG/ML INJ IV PUSH ONE ×2 (01:00→03:00)
[2017-03-14 01:15] LABS: AUTOMATED NEUTROPHIL # 8.3 TH/MM3 (1.8-7.7); BASOPHIL # 0.1 TH/MM3 (0-0.2); BASOPHIL % 0.9 % (0.0-2.0); EOSINOPHIL # 0.1 TH/MM3 (0-0.4); EOSINOPHIL % 1.1 % (0.0-4.0); HEMATOCRIT 46.2 % (39.0-51.0); HEMO FLAGS DIFF FINAL; LYMPH % 11.5 % (9.0-44.0); LYMPHOCYTE # 1.2 TH/MM3 (1.0-4.8); MEAN CELL VOLUME 86.6 FL (80.0-100.0); MEAN CORPUSCULAR HEMOGLOBIN 29.1 PG (27.0-34.0); MEAN CORPUSCULAR HGB CONC 33.6 % (32.0-36.0); NEUT % 82.5 % (16.0-70.0); PLATELET COUNT 214 TH/MM3 (150-450); RED BLOOD COUNT 5.34 MIL/MM3 (4.50-5.90); RED CELL DISTRIBUTION WIDTH 15.7 % (11.6-17.2); WHITE BLOOD COUNT 10.1 TH/MM3 (4.0-11.0)
[2017-03-14 01:17] LABS: BLOOD, URINE TRACE (NEG); COMMENT (UR) CULT NOT INDICATED; CULTURE IF INDICATED CULT NOT INDICATED; GLUCOSE,URINE NEG (NEG); KETONE, URINE 10 mg/dL (NEG); MUCUS URINE FEW /lpf (OCC); NITRITE,URINE NEG (NEG); URINE COLOR YELLOW (YELLW/STRAW)
[2017-03-14 01:26] LABS: APTT (PATIENT) 29.8 SEC (24.3-30.1); INTERNATIONAL NORMALIZED RATIO 0.9 RATIO; PROTHROMBIN TIME - PATIENT 10.2 SEC (9.8-11.6)
[2017-03-14 01:42] LABS: ALKALINE PHOSPHATASE 125 U/L (45-117); TOTAL BILIRUBIN ADULT 0.4 MG/DL (0.2-1.0)
--- NOTE | 2017-03-14 01:47 | RADRPT ---
EXAM DATE/TIME: 03/14/2017 01:09 [place] COMPARISON: CHEST SINGLE AP, October 30, 2016, 15:40. INDICATIONS : Chest pain. MEDICAL HISTORY : Hypertension. Diabetes mellitus type II. SURGICAL HISTORY : None. ENCOUNTER: Initial ACUITY: 1 day PAIN SCORE: 0/10 LOCATION: Bilateral chest FINDINGS: A single view of the chest demonstrates the lungs to be symmetrically aerated without evidence of mas s, infiltrate or effusion. The cardiomediastinal contours are unremarkable. Osseous structures are intact. CONCLUSION: No acute disease. Petey Christianson MD on March 14, 2017 at 1:47 Board Certified Radiologist. This report was verified electronically.
[2017-03-14 01:56] LABS: ALT (GPT) 27 U/L (12-78); ANION GAP 6 MEQ/L (5-15); AST (GOT) 22 U/L (15-37); BICARBONATE 28.1 MEQ/L (21.0-32.0); BLOOD UREA NITROGEN 14 MG/DL (7-18); CHLORIDE 106 MEQ/L (98-107); GLOMERULAR FILTRATION RATE 58 ML/MIN (>89); MAGNESIUM 1.8 MG/DL (1.5-2.5); SODIUM (NA) 140 MEQ/L (136-145)
[2017-03-14 01:58] LABS: POTASSIUM 4.5 MEQ/L (3.5-5.1)
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
[2017-03-14] MEDS ORDERED: IODIXANOL 320 MG/ML 10 ML VIAL (for Rad CT) IV ONE (02:16)
--- NOTE | 2017-03-14 03:08 | RADRPT ---
EXAM DATE/TIME: 03/14/2017 02:15 [facility] COMPARISON: CT ABDOMEN & PELVIS W CONTRAST, October 28, 2016, 21:43. INDICATIONS : Abdominal pain with naseua and vomiting. IV CONTRAST: 47 cc Visipaque (iodixanol) IV ORAL CONTRAST: No oral contrast ingested. RADIATION DOSE: 29.28 CTDIvol (mGy) MEDICAL HISTORY : Hypertension. Diabetes mellitus type 2. Small bowel obstruction. SURGICAL HISTORY : Nephrectomy, right. ENCOUNTER: Initial ACUITY: 2 days PAIN SCALE: 9/10 LOCATION: Bilateral abdomen TECHNIQUE: Volumetric scanning of the abdomen and pelvis was performed. Using automated exposure control and ad justment of the mA and/or kV according to patient size, radiation dose was kept as low as reasonably achievable to obtain optimal diagnostic quality images. DICOM format image data is available electro nically for review and comparison. FINDINGS: LOWER LUNGS: The visualized lower lungs are clear. LIVER: Decreased attenuation with low-density seen. There is no dilation of the biliary tree. No calcified gallstones. SPLEEN: Normal size without lesion. PANCREAS: Within normal limits. KIDNEYS: By nephrectomy. There is no mass, stone or hydronephrosis. Left renal cyst. ADRENAL GLANDS: Within normal limits. VASCULAR: There is no aortic aneurysm. BOWEL/MESENTERY: Diverticulosis without diverticulitis. There is no free intraperitoneal air or fluid. ABDOMINAL WALL: Small fat-containing umbilical hernia. RETROPERITONEUM: There is no lymphadenopathy. BLADDER: No wall thickening or mass. REPRODUCTIVE: Within normal limits. INGUINAL: There is no lymphadenopathy or hernia. MUSCULOSKELETAL: Within normal limits for patient age. CONCLUSION: 1. Mild hepatic steatosis. 2. Left renal cyst. 3. Right nephrectomy. 4. Diverticulosis without diverticulitis. 5. Small fat-containing umbilical hernia. 6. No bowel obstruction seen. Petey Christianson MD on March 14, 2017 at 3:03 Board Certified Radiologist. This report was verified electronically.
[2017-03-14 03:30] VITALS: BP 164/94; PULSE 93; RESP 18; O2SAT 98
[2017-03-14] MEDS ORDERED: ZOFR4SOL PO (03:39)
--- NOTE | 2017-03-14 15:14 | EKG ---
Date Performed: 03/14/2017 Time Performed: 03:09:53 PTAGE: 66 years EKG: SINUS TACHYCARDIA WITH OCCASIONAL SUPRAVENTRICULAR PREMATURE COMPLEXES POSSIBLE INFERIOR MY OCARDIAL INFARCTION Since previous tracing, no significant change noted ABNORMAL ECG PREVIOUS TRACING : 10/28/2016 20.40 DOCTOR: Tyler Encarnacion Interpretating Date/Time 03/14/2017 15:12:34
== END 2017-03-14 03:58 | disposition home or self-care (01) ==
LOC: NEPC 21:09
DX: R10.30 Lower abdominal pain, unspecified (principal); R11.2 Nausea with vomiting, unspecified; R94.31 Abnormal electrocardiogram [ECG] [EKG]; I10 Essential (primary) hypertension; E78.5 Hyperlipidemia, unspecified; E11.9 Type 2 diabetes mellitus without complications; N28.9 Disorder of kidney and ureter, unspecified; G47.30 Sleep apnea, unspecified; E66.01 Morbid (severe) obesity due to excess calories; Z79.4 Long term (current) use of insulin; Z87.39 Personal history of other diseases of the musculoskeletal system and connective tissue; Z86.79 Personal history of other diseases of the circulatory system; Z87.19 Personal history of other diseases of the digestive system; Z87.448 Personal history of other diseases of urinary system; Z87.09 Personal history of other diseases of the respiratory system
CPT/HCPCS: 71010; 74177; 80053; 81001; 83605; 83690; 83735; 84484; 85025; 85610; 85730; 93005; 96361; 96374; 96375; 96376; 99285; J2270; J2405; J7040; Q9967

== ENCOUNTER 2017-03-14 23:53 | Inpatient (IN) | payer OTHER ==
[~2017-03-14] VITALS: Ht 175.3 cm; Wt 122.2 kg
[~2017-03-14 23:53] MED LIST changes: +ZOFR4SOL PO
[2017-03-14 23:55] VITALS: BP 161/101; PULSE 101; RESP 20; TEMP 98.7; O2SAT 95
[2017-03-15] VITALS (11 sets, daily range): BP systolic 126–186; BP diastolic 69–105; PULSE 60–102; RESP 16–22; TEMP 97.8–98.7; O2SAT 90–98
[2017-03-15] MEDS ORDERED: SODIUM CHLOR 0.9% 1000 ML INJ 1,000 ML IV SCH (00:57)
[2017-03-15] MEDS ORDERED: SODIUM CHLORIDE 0.9% FLUSH 10 ML FLUSH IV FLUSH PRN ×2 (01:00→04:15)
[2017-03-15] MEDS ORDERED: MORPHINE SULFATE 4 MG/ML INJ IV PUSH ONE ×3 (01:00→22:30)
[2017-03-15] MEDS ORDERED: DIATRIZOATE MEGLUM/DIATRIZOATE SOD 9 ML CUP ONE (01:19)
[2017-03-15 01:27] LABS: BASOPHIL % 0.4 % (0.0-2.0); EOSINOPHIL # 0.2 TH/MM3 (0-0.4); EOSINOPHIL % 1.8 % (0.0-4.0); HEMATOCRIT 46.1 % (39.0-51.0); HEMO FLAGS DIFF FINAL; LYMPH % 12.5 % (9.0-44.0); LYMPHOCYTE # 1.1 TH/MM3 (1.0-4.8); MEAN CELL VOLUME 87.6 FL (80.0-100.0); MEAN CORPUSCULAR HEMOGLOBIN 28.8 PG (27.0-34.0); MEAN CORPUSCULAR HGB CONC 32.9 % (32.0-36.0); NEUT % 79.3 % (16.0-70.0); PLATELET COUNT 205 TH/MM3 (150-450); RED BLOOD COUNT 5.26 MIL/MM3 (4.50-5.90); RED CELL DISTRIBUTION WIDTH 15.6 % (11.6-17.2); WHITE BLOOD COUNT 8.8 TH/MM3 (4.0-11.0)
[2017-03-15 01:38] LABS: APTT (PATIENT) 30.4 SEC (24.3-30.1); INTERNATIONAL NORMALIZED RATIO 0.9 RATIO; PROTHROMBIN TIME - PATIENT 9.9 SEC (9.8-11.6)
[2017-03-15 01:58] LABS: ALKALINE PHOSPHATASE 123 U/L (45-117); TOTAL BILIRUBIN ADULT 0.5 MG/DL (0.2-1.0)
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
[2017-03-15 02:14] LABS: ALT (GPT) 30 U/L (12-78); ANION GAP 3 MEQ/L (5-15); AST (GOT) 35 U/L (15-37); BICARBONATE 31.9 MEQ/L (21.0-32.0); BLOOD UREA NITROGEN 14 MG/DL (7-18); CHLORIDE 105 MEQ/L (98-107); GLOMERULAR FILTRATION RATE 58 ML/MIN (>89); POTASSIUM 4.6 MEQ/L (3.5-5.1); SODIUM (NA) 140 MEQ/L (136-145)
[2017-03-15] MEDS ORDERED: IODIXANOL 320 MG/ML 10 ML VIAL (for Rad CT) IV ONE (02:54)
--- NOTE | 2017-03-15 03:37 | RADRPT ---
EXAM DATE/TIME: 03/15/2017 02:41 [facility] COMPARISON: No previous studies available for comparison. INDICATIONS : Abdominal pain and distention. IV CONTRAST: 50 cc Visipaque (iodixanol) IV ORAL CONTRAST: Prescribed oral contrast ingested. RADIATION DOSE: 26.1 CTDIvol (mGy) MEDICAL HISTORY : Hypertension. Diabetes mellitus type 2. Small bowel obstruction. SURGICAL HISTORY : Nephrectomy, right. ENCOUNTER: Initial ACUITY: 3 days PAIN SCALE: 9/10 LOCATION: All quadrants. TECHNIQUE: Volumetric scanning of the abdomen and pelvis was performed. Using automated exposure control and ad justment of the mA and/or kV according to patient size, radiation dose was kept as low as reasonably achievable to obtain optimal diagnostic quality images. DICOM format image data is available electro nically for review and comparison. FINDINGS: LOWER LUNGS: The visualized lower lungs are clear. LIVER: Decreased attenuation without lesion. There is no dilation of the biliary tree. No calcified gallst ones. SPLEEN: Normal size without lesion. PANCREAS: Within normal limits. KIDNEYS: Right nephrectomy. There is no mass, stone or hydronephrosis. Left renal low-density. ADRENAL GLANDS: Within normal limits. VASCULAR: There is no aortic aneurysm. BOWEL/MESENTERY: Scatter diverticulosis. There is no free intraperitoneal air or fluid. Mild distention of some small bowel loops in the lower abdomen. ABDOMINAL WALL: I. containing umbilical hernia. RETROPERITONEUM: There is no lymphadenopathy. BLADDER: No wall thickening or mass. REPRODUCTIVE: Within normal limits. INGUINAL: There is no lymphadenopathy or hernia. MUSCULOSKELETAL: Within normal limits for patient age. CONCLUSION: 1. Mild distention of some bowel loops in the lower abdomen, could be related to early obstruction. 2. Left renal cyst. 3. Hepatic steatosis. 4. Right nephrectomy. 5. Small fat containing umbilical hernia. 6. Diverticulosis without diverticulitis. Petey Christianson MD on March 15, 2017 at 3:30 Board Certified Radiologist. This report was verified electronically.
[2017-03-15] MEDS ORDERED: ACETAMINOPHEN/HYDROcodone 325 MG/5 MG TAB PO PRN (04:15)
[2017-03-15] MEDS ORDERED: DEXTROSE 50% IN WATER 50 ML VIAL(D50) IV PRN (04:15)
[2017-03-15] MEDS ORDERED: LACTULOSE SYRUP 20 GM/30 ML CUP PO PRN (04:15)
[2017-03-15] MEDS ORDERED: GLUCAGON 1 MG/ML VIAL OTHER PRN (04:15)
[2017-03-15] MEDS ORDERED: ACETAMINOPHEN 325 MG TAB PO PRN (04:15)
[2017-03-15] MEDS ORDERED: SENNOSIDES 8.6 MG TAB PO PRN (04:15)
[2017-03-15] MEDS ORDERED: BISACODYL 10 MG SUPP RECTAL PRN (04:15)
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
[2017-03-15] MEDS ORDERED: PILL SPLITTER OTHER PRN (04:30)
[2017-03-15] MEDS: SODIUM CHLOR 0.9% 1000 ML INJ 1,000 ML IV SCH ×3 (05:31→22:00)
[2017-03-15] MEDS: PANTOPRAZOLE SODIUM 40 MG VIAL IV PUSH SCH ×2 (05:31→17:13)
[2017-03-15] MEDS: INSULIN ASPART SUPPLEMENTAL SCALE SQ SCH ×4 (05:31→20:47)
[2017-03-15] MEDS ORDERED: MISCELLANEOUS NURSING INFORMATION ONE (06:00)
[2017-03-15] MEDS: MORPHINE SULFATE 4 MG/ML INJ IV PRN ×5 (06:04→20:29)
[2017-03-15] MEDS: METOPROLOL TARTRATE 25 MG TAB PO SCH ×2 (08:10→20:35)
[2017-03-15] MEDS: POLYETHYLENE GLYCOL 17 GM PKG PO SCH (08:10)
[2017-03-15] MEDS: SODIUM CHLORIDE 0.9% FLUSH 10 ML FLUSH IV FLUSH SCH ×2 (08:10→20:36)
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
[2017-03-15] MEDS ORDERED: DOCUSATE SODIUM 50 MG/SENNA 8.6 MG TAB PO SCH (09:00)
[2017-03-15] MEDS ORDERED: PEG (High)/E-LYTE SOLN 4000 ML BTL PO ONE (10:45)
[2017-03-15] MEDS ORDERED: cloNIDine HCL 0.1 MG TAB PO PRN (14:00)
[2017-03-15] MEDS: PRAVASTATIN SOD 20 MG TAB PO SCH (20:35)
[2017-03-15] MEDS: DOCUSATE SODIUM 50 MG/SENNA 8.6 MG TAB PO SCH (20:35)
[2017-03-16] VITALS (10 sets, daily range): BP systolic 120–171; BP diastolic 81–101; PULSE 85–117; RESP 16–21; TEMP 97.7–100; O2SAT 93–97
--- NOTE | 2017-03-16 00:44 | RADRPT ---
EXAM DATE/TIME: 03/16/2017 00:34 [facility] COMPARISON: CT ABDOMEN & PELVIS W CONTRAST, March 15, 2017, 2:41. INDICATIONS : Distention, NG tube placement. MEDICAL HISTORY : None. SURGICAL HISTORY : None. ENCOUNTER: Subsequent ACUITY: 4 - 6 days PAIN SCORE: 0/10 LOCATION: Bilateral abdomen FINDINGS: Supine view of the abdomen was performed. NG tube not seen. Mildly prominent small bowel loops in th e left mid abdomen. No abnormal masses, calcifications, or organomegaly is seen. The osseous struct ures are unremarkable. CONCLUSION: 1. Mildly prominent small bowel loops left midabdomen. 2. Nasogastric tube not seen. Petey Christianson MD on March 16, 2017 at 0:41 Board Certified Radiologist. This report was verified electronically.
[2017-03-16] MEDS ORDERED: HYDROmorphone HCL PF 1 MG/ML VIAL IV PUSH ONE (01:15)
[2017-03-16] MEDS: MORPHINE SULFATE 4 MG/ML INJ IV PRN ×4 (04:16→16:06)
[2017-03-16] MEDS: PANTOPRAZOLE SODIUM 40 MG VIAL IV PUSH SCH ×2 (06:01→18:10)
[2017-03-16] MEDS: INSULIN ASPART SUPPLEMENTAL SCALE SQ SCH ×4 (06:11→19:59)
[2017-03-16] MEDS: ONDANSETRON HCL 4 MG/2 ML VIAL IVP PRN (07:32)
[2017-03-16 08:18] LABS: AUTOMATED NEUTROPHIL # 8.4 TH/MM3 (1.8-7.7); EOSINOPHIL % 0.1 % (0.0-4.0); HEMATOCRIT 46.3 % (39.0-51.0); HEMO FLAGS DIFF FINAL; LYMPH % 6.3 % (9.0-44.0); LYMPHOCYTE # 0.6 TH/MM3 (1.0-4.8); MEAN CELL VOLUME 89.2 FL (80.0-100.0); MEAN CORPUSCULAR HEMOGLOBIN 28.3 PG (27.0-34.0); MEAN CORPUSCULAR HGB CONC 31.7 % (32.0-36.0); NEUT % 85.6 % (16.0-70.0); PLATELET COUNT 190 TH/MM3 (150-450); RED BLOOD COUNT 5.19 MIL/MM3 (4.50-5.90); RED CELL DISTRIBUTION WIDTH 16.1 % (11.6-17.2); WHITE BLOOD COUNT 9.8 TH/MM3 (4.0-11.0)
[2017-03-16] MEDS: DOCUSATE SODIUM 50 MG/SENNA 8.6 MG TAB PO SCH ×2 (08:32→21:09)
[2017-03-16] MEDS: METOPROLOL TARTRATE 25 MG TAB PO SCH ×2 (08:32→21:14)
[2017-03-16] MEDS: SODIUM CHLORIDE 0.9% FLUSH 10 ML FLUSH IV FLUSH SCH ×2 (08:32→21:08)
[2017-03-16] MEDS: POLYETHYLENE GLYCOL 17 GM PKG PO SCH (08:32)
[2017-03-16] MEDS: SODIUM CHLOR 0.9% 1000 ML INJ 1,000 ML IV SCH ×2 (08:33→21:09)
[2017-03-16 08:43] LABS: ALT (GPT) 25 U/L (12-78); ANION GAP 8 MEQ/L (5-15); AST (GOT) 15 U/L (15-37); BICARBONATE 27.2 MEQ/L (21.0-32.0); BLOOD UREA NITROGEN 14 MG/DL (7-18); CHLORIDE 105 MEQ/L (98-107); GLOMERULAR FILTRATION RATE 70 ML/MIN (>89); POTASSIUM 4.2 MEQ/L (3.5-5.1); SODIUM (NA) 140 MEQ/L (136-145)
[2017-03-16 08:46] LABS: ALKALINE PHOSPHATASE 115 U/L (45-117); TOTAL BILIRUBIN ADULT 0.6 MG/DL (0.2-1.0)
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
[2017-03-16] MEDS: LISINOPRIL 5 MG TAB PO SCH (11:25)
[2017-03-16] MEDS: KETOROLAC TROMETHAMINE 30 MG/ML (IVP) VIAL IV PUSH PRN (19:32)
[2017-03-16] MEDS: PRAVASTATIN SOD 20 MG TAB PO SCH (21:09)
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
[2017-03-17 03:19] VITALS: BP 132/85; PULSE 104; RESP 15; TEMP 99.5; O2SAT 94
[2017-03-17] MEDS: INSULIN ASPART SUPPLEMENTAL SCALE SQ SCH ×4 (07:00→19:58)
[2017-03-17] MEDS: SODIUM CHLOR 0.9% 1000 ML INJ 1,000 ML IV SCH (07:08)
[2017-03-17] MEDS: PANTOPRAZOLE SODIUM 40 MG VIAL IV PUSH SCH ×2 (07:09→17:41)
[2017-03-17] MEDS: KETOROLAC TROMETHAMINE 30 MG/ML (IVP) VIAL IV PUSH PRN ×3 (07:18→19:48)
[2017-03-17 07:20] VITALS: BP 135/90; PULSE 105; RESP 20; TEMP 98.9; O2SAT 98
--- NOTE | 2017-03-17 07:47 | RADRPT ---
EXAM DATE/TIME: 03/17/2017 07:35 [facility] COMPARISON: CHEST SINGLE AP, March 14, 2017, 1:09. INDICATIONS : Fever. MEDICAL HISTORY : Hypertension. Hypercholesterolemia. Arthritis. Sleep apena. SBO. UTI. Diabetic. SURGICAL HISTORY : Nephrectomy. ENCOUNTER: Initial ACUITY: 3 days PAIN SCORE: 0/10 LOCATION: chest FINDINGS: A nasogastric tube descends to the stomach. The lungs are symmetrically aerated and grossly clear. Ca rdiomediastinal contours are stable and satisfactory for technique and projection. CONCLUSION: NG tube in good position. No focal infiltrate Vaibhav Jackson MD on March 17, 2017 at 7:43 Board Certified Radiologist. This report was verified electronically.
[2017-03-17] MEDS: LISINOPRIL 5 MG TAB PO SCH (09:38)
[2017-03-17] MEDS: METOPROLOL TARTRATE 25 MG TAB PO SCH ×2 (09:38→19:49)
[2017-03-17] MEDS: POLYETHYLENE GLYCOL 17 GM PKG PO SCH (09:38)
[2017-03-17] MEDS: DOCUSATE SODIUM 50 MG/SENNA 8.6 MG TAB PO SCH ×2 (09:38→19:58)
[2017-03-17] MEDS: SODIUM CHLORIDE 0.9% FLUSH 10 ML FLUSH IV FLUSH SCH ×2 (09:38→19:51)
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
[2017-03-17] MEDS ORDERED: BENZOCAINE-MENTHOL (SUGAR FREE) 15 MG-3.6 MG LOZENGE BUCCAL PRN (10:15)
[2017-03-17 10:56] LABS: BLOOD, URINE NEG (NEG); COMMENT (UR) CULT NOT INDICATED; CULTURE IF INDICATED CULT NOT INDICATED; GLUCOSE,URINE NEG (NEG); HYALINE CAST, URINE 8 /lpf (RARE); KETONE, URINE NEG (NEG); MUCUS URINE FEW /lpf (OCC); NITRITE,URINE NEG (NEG); PH, URINE 5.5 (5.0-8.5); SQUAMOUS EPITHELIAL CELL URINE <1 /hpf (0-5); URINE COLOR YELLOW (YELLW/STRAW)
[2017-03-17 11:09] VITALS: BP 139/86; PULSE 104; RESP 20; TEMP 98.7; O2SAT 94
[2017-03-17] MEDS: D5-1/2 NS + KCL 20 MEQ INJ 1,000 ML IV SCH ×3 (12:51→18:44)
[2017-03-17 17:33] VITALS: BP 177/91; PULSE 106; RESP 20; TEMP 98.2; O2SAT 93
[2017-03-17] MEDS: MORPHINE SULFATE 4 MG/ML INJ IV PRN (17:42)
[2017-03-17] MEDS: PRAVASTATIN SOD 20 MG TAB PO SCH (19:49)
[2017-03-17 20:00] VITALS: BP 171/91; PULSE 112; RESP 22; TEMP 96; O2SAT 92
[2017-03-17] MEDS: RESP: ALBUTEROL 2.5 MG/IPRATROPIUM 0.5 MG NEB (SCH) NEB (21:58)
[2017-03-18] VITALS (8 sets, daily range): BP systolic 120–165; BP diastolic 74–93; PULSE 88–96; RESP 17–20; TEMP 95.3–100.1; O2SAT 92–96
[2017-03-18] MEDS: RESP: ALBUTEROL 2.5 MG/IPRATROPIUM 0.5 MG NEB (SCH) NEB ×4 (03:43→21:51)
[2017-03-18] MEDS: MORPHINE SULFATE 4 MG/ML INJ IV PRN ×4 (05:16→22:03)
[2017-03-18] MEDS: PANTOPRAZOLE SODIUM 40 MG VIAL IV PUSH SCH ×2 (05:16→17:56)
[2017-03-18] MEDS: INSULIN ASPART SUPPLEMENTAL SCALE SQ SCH ×4 (05:19→20:52)
[2017-03-18 07:52] LABS: BASOPHIL % 0.1 % (0.0-2.0); EOSINOPHIL # 0.3 TH/MM3 (0-0.4); EOSINOPHIL % 3.1 % (0.0-4.0); HEMATOCRIT 41.6 % (39.0-51.0); HEMO FLAGS DIFF FINAL; LYMPH % 11.6 % (9.0-44.0); LYMPHOCYTE # 1.1 TH/MM3 (1.0-4.8); MEAN CELL VOLUME 88.8 FL (80.0-100.0); MEAN CORPUSCULAR HEMOGLOBIN 28.4 PG (27.0-34.0); MEAN CORPUSCULAR HGB CONC 31.9 % (32.0-36.0); MONO % 10.7 % (0.0-8.0); NEUT % 74.5 % (16.0-70.0); PLATELET COUNT 174 TH/MM3 (150-450); RED BLOOD COUNT 4.69 MIL/MM3 (4.50-5.90); RED CELL DISTRIBUTION WIDTH 15.7 % (11.6-17.2); WHITE BLOOD COUNT 9.4 TH/MM3 (4.0-11.0)
[2017-03-18 08:47] LABS: BICARBONATE 29.2 MEQ/L (21.0-32.0); POTASSIUM 3.8 MEQ/L (3.5-5.1)
[2017-03-18] MEDS: SODIUM CHLORIDE 0.9% FLUSH 10 ML FLUSH IV FLUSH SCH ×2 (09:00→20:49)
[2017-03-18] MEDS: LISINOPRIL 5 MG TAB PO SCH (10:16)
[2017-03-18] MEDS: DOCUSATE SODIUM 50 MG/SENNA 8.6 MG TAB PO SCH ×2 (10:17→20:49)
[2017-03-18] MEDS: METOPROLOL TARTRATE 25 MG TAB PO SCH ×2 (10:20→20:49)
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
[2017-03-18] MEDS: HEPARIN SODIUM - SQ 10,000 UNITS/ML VIAL SQ SCH (17:55)
[2017-03-18] MEDS: PRAVASTATIN SOD 20 MG TAB PO SCH (20:49)
[2017-03-18] MEDS: MAGNESIUM HYDROXIDE SUSP 30 ML CUP PO PRN (20:49)
[2017-03-18] MEDS: D5-1/2 NS + KCL 20 MEQ INJ 1,000 ML IV SCH (22:03)
[2017-03-18] MEDS: ONDANSETRON HCL 4 MG/2 ML VIAL IVP PRN (23:03)
[2017-03-19] VITALS (8 sets, daily range): BP systolic 118–176; BP diastolic 60–92; PULSE 77–99; RESP 18–22; TEMP 97.6–99.4; O2SAT 92–99
[2017-03-19] MEDS: KETOROLAC TROMETHAMINE 30 MG/ML (IVP) VIAL IV PUSH PRN ×3 (02:23→20:22)
[2017-03-19] MEDS: RESP: ALBUTEROL 2.5 MG/IPRATROPIUM 0.5 MG NEB (SCH) NEB ×4 (04:27→21:31)
[2017-03-19] MEDS ORDERED: PROCHLORPERAZINE INJ 10 MG/2 ML VIAL IV PUSH PRN (04:30)
[2017-03-19] MEDS: HEPARIN SODIUM - SQ 10,000 UNITS/ML VIAL SQ SCH ×2 (06:18→16:21)
[2017-03-19] MEDS: PANTOPRAZOLE SODIUM 40 MG VIAL IV PUSH SCH ×2 (06:19→16:21)
[2017-03-19] MEDS: INSULIN ASPART SUPPLEMENTAL SCALE SQ SCH ×4 (07:00→21:00)
[2017-03-19] MEDS: D5-1/2 NS + KCL 20 MEQ INJ 1,000 ML IV SCH ×2 (07:47→16:23)
[2017-03-19] MEDS: LISINOPRIL 5 MG TAB PO SCH (08:43)
[2017-03-19] MEDS: METOPROLOL TARTRATE 25 MG TAB PO SCH ×2 (08:44→22:33)
[2017-03-19] MEDS: DOCUSATE SODIUM 50 MG/SENNA 8.6 MG TAB PO SCH ×2 (08:45→20:22)
[2017-03-19] MEDS: SODIUM CHLORIDE 0.9% FLUSH 10 ML FLUSH IV FLUSH SCH ×2 (08:52→20:22)
[2017-03-19 08:57] LABS: HEMATOCRIT 40.6 % (39.0-51.0); MEAN CELL VOLUME 89.3 FL (80.0-100.0); MEAN CORPUSCULAR HEMOGLOBIN 28.3 PG (27.0-34.0); MEAN CORPUSCULAR HGB CONC 31.7 % (32.0-36.0); PLATELET COUNT 178 TH/MM3 (150-450); RED BLOOD COUNT 4.55 MIL/MM3 (4.50-5.90); RED CELL DISTRIBUTION WIDTH 15.5 % (11.6-17.2); REVIEW FLAG FINAL
[2017-03-19 09:22] LABS: BICARBONATE 26.1 MEQ/L (21.0-32.0); POTASSIUM 3.6 MEQ/L (3.5-5.1)
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
[2017-03-19] MEDS: MAGNESIUM HYDROXIDE SUSP 30 ML CUP PO PRN (11:40)
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
[2017-03-19] MEDS: ONDANSETRON HCL 4 MG/2 ML VIAL IVP PRN ×2 (18:30→23:53)
[2017-03-19] MEDS: PRAVASTATIN SOD 20 MG TAB PO SCH (20:22)
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
[2017-03-19] MEDS ORDERED: METOPROLOL TARTRATE 5 MG/5 ML VIAL IV PUSH ONE (23:30)
[2017-03-19] MEDS ORDERED: HYDROmorphone HCL PF 1 MG/ML VIAL IV PUSH ONE (23:30)
[2017-03-20] VITALS: BP 156/94; PULSE 90; RESP 20; TEMP 98.7; O2SAT 93
[2017-03-20] MEDS: RESP: ALBUTEROL 2.5 MG/IPRATROPIUM 0.5 MG NEB (SCH) NEB ×4 (03:00→20:13)
[2017-03-20] MEDS: D5-1/2 NS + KCL 20 MEQ INJ 1,000 ML IV SCH ×3 (03:50→23:50)
[2017-03-20 04:00] VITALS: BP 152/80; PULSE 80; RESP 20; TEMP 98.9; O2SAT 94
[2017-03-20] MEDS: PANTOPRAZOLE SODIUM 40 MG VIAL IV PUSH SCH ×2 (05:59→18:11)
[2017-03-20] MEDS: KETOROLAC TROMETHAMINE 30 MG/ML (IVP) VIAL IV PUSH PRN ×3 (05:59→18:11)
[2017-03-20] MEDS: HEPARIN SODIUM - SQ 10,000 UNITS/ML VIAL SQ SCH ×2 (05:59→18:12)
[2017-03-20 06:53] LABS: HEMATOCRIT 40.9 % (39.0-51.0); MEAN CELL VOLUME 88.7 FL (80.0-100.0); MEAN CORPUSCULAR HEMOGLOBIN 28.2 PG (27.0-34.0); MEAN CORPUSCULAR HGB CONC 31.8 % (32.0-36.0); PLATELET COUNT 184 TH/MM3 (150-450); RED BLOOD COUNT 4.61 MIL/MM3 (4.50-5.90); RED CELL DISTRIBUTION WIDTH 15.5 % (11.6-17.2); REVIEW FLAG FINAL; WHITE BLOOD COUNT 7.9 TH/MM3 (4.0-11.0)
[2017-03-20] MEDS: INSULIN ASPART SUPPLEMENTAL SCALE SQ SCH ×4 (07:00→21:00)
[2017-03-20 07:16] LABS: BICARBONATE 28.8 MEQ/L (21.0-32.0); POTASSIUM 3.8 MEQ/L (3.5-5.1)
[2017-03-20 08:31] VITALS: BP 141/84; PULSE 82; RESP 18; TEMP 98; O2SAT 93
[2017-03-20] MEDS: SODIUM CHLORIDE 0.9% FLUSH 10 ML FLUSH IV FLUSH SCH ×2 (09:01→22:03)
[2017-03-20] MEDS: DOCUSATE SODIUM 50 MG/SENNA 8.6 MG TAB PO SCH ×2 (09:02→22:02)
[2017-03-20] MEDS: METOPROLOL TARTRATE 25 MG TAB PO SCH ×2 (09:02→22:02)
[2017-03-20] MEDS: LISINOPRIL 5 MG TAB PO SCH (09:03)
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
[2017-03-20 12:27] VITALS: BP 149/82; PULSE 75; RESP 18; TEMP 97.7; O2SAT 95
[2017-03-20 16:19] VITALS: BP 151/95; PULSE 84; RESP 18; TEMP 98.7; O2SAT 94
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
[2017-03-20 20:00] VITALS: BP 154/94; PULSE 88; RESP 20; TEMP 99.3; O2SAT 96
[2017-03-20] MEDS: PRAVASTATIN SOD 20 MG TAB PO SCH (22:02)
[2017-03-20] MEDS: HYDROmorphone HCL PF 1 MG/ML VIAL IV PUSH PRN (22:49)
[2017-03-21] VITALS (8 sets, daily range): BP systolic 148–179; BP diastolic 84–95; PULSE 82–96; RESP 16–20; TEMP 97.8–99.6; O2SAT 92–97
[2017-03-21] MEDS: RESP: ALBUTEROL 2.5 MG/IPRATROPIUM 0.5 MG NEB (SCH) NEB ×4 (04:00→21:30)
[2017-03-21] MEDS: INSULIN ASPART SUPPLEMENTAL SCALE SQ SCH ×4 (06:28→21:00)
[2017-03-21] MEDS: HEPARIN SODIUM - SQ 10,000 UNITS/ML VIAL SQ SCH ×2 (06:28→17:02)
[2017-03-21] MEDS: PANTOPRAZOLE SODIUM 40 MG VIAL IV PUSH SCH ×2 (06:28→17:02)
[2017-03-21] MEDS: LISINOPRIL 5 MG TAB PO SCH (09:13)
[2017-03-21] MEDS: METOPROLOL TARTRATE 25 MG TAB PO SCH (09:13)
[2017-03-21] MEDS: DOCUSATE SODIUM 50 MG/SENNA 8.6 MG TAB PO SCH ×2 (09:14→20:14)
[2017-03-21] MEDS: D5-1/2 NS + KCL 20 MEQ INJ 1,000 ML IV SCH ×2 (09:14→22:50)
[2017-03-21] MEDS: SODIUM CHLORIDE 0.9% FLUSH 10 ML FLUSH IV FLUSH SCH ×2 (09:14→21:00)
--- NOTE | 2017-03-21 09:14 | RADRPT ---
EXAM DATE/TIME: 03/21/2017 08:16 [facility] COMPARISON: ABDOMEN KUB ONLY, March 19, 2017, 20:37. INDICATIONS : Evaluate for ileus. MEDICAL HISTORY : None. SURGICAL HISTORY : Nephrectomy, right. ENCOUNTER: Subsequent ACUITY: 1 week PAIN SCORE: 0/10 LOCATION: Abdomen FINDINGS: NG tube is present with tip in the stomach. There is slight prominence of loops of small bowel in the midportion of the abdomen, however overall improved since the prior examination with maximum diamete r of 4.8 cm. No definite free air is identified for technique. There is gas within the colon. CONCLUSION: Distended loops of small bowel slightly improved since the prior examination. Jorge Arizmendi MD on March 21, 2017 at 9:12 Board Certified Radiologist. This report was verified electronically.
[2017-03-21] MEDS: HYDROmorphone HCL PF 1 MG/ML VIAL IV PUSH PRN ×2 (09:33→20:27)
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
[2017-03-21 12:29] LABS: HEMATOCRIT 41.6 % (39.0-51.0); MEAN CELL VOLUME 89.9 FL (80.0-100.0); MEAN CORPUSCULAR HEMOGLOBIN 28.8 PG (27.0-34.0); PLATELET COUNT 187 TH/MM3 (150-450); RED BLOOD COUNT 4.63 MIL/MM3 (4.50-5.90); RED CELL DISTRIBUTION WIDTH 15.7 % (11.6-17.2); REVIEW FLAG FINAL; WHITE BLOOD COUNT 9.9 TH/MM3 (4.0-11.0)
[2017-03-21 12:49] LABS: BICARBONATE 28.8 MEQ/L (21.0-32.0); POTASSIUM 3.8 MEQ/L (3.5-5.1)
[2017-03-21] MEDS: PRAVASTATIN SOD 20 MG TAB PO SCH (20:14)
[2017-03-21] MEDS: METOPROLOL TARTRATE 50 MG TAB PO SCH (20:14)
[2017-03-22] MEDS: HYDROmorphone HCL PF 1 MG/ML VIAL IV PUSH PRN (01:37)
[2017-03-22 01:49] VITALS: BP 151/85; PULSE 94; RESP 20; TEMP 97.5; O2SAT 99
[2017-03-22] MEDS: PANTOPRAZOLE SODIUM 40 MG VIAL IV PUSH SCH ×2 (06:21→18:07)
[2017-03-22] MEDS: HEPARIN SODIUM - SQ 10,000 UNITS/ML VIAL SQ SCH ×2 (06:22→18:07)
[2017-03-22] MEDS: INSULIN ASPART SUPPLEMENTAL SCALE SQ SCH ×3 (06:24→16:29)
[2017-03-22 06:33] VITALS: BP 168/95; PULSE 87; RESP 20; TEMP 98.1; O2SAT 93
[2017-03-22 08:22] VITALS: BP 167/97; PULSE 76; RESP 20; TEMP 99.9; O2SAT 94
[2017-03-22] MEDS: DOCUSATE SODIUM 50 MG/SENNA 8.6 MG TAB PO SCH (09:08)
[2017-03-22] MEDS: METOPROLOL TARTRATE 50 MG TAB PO SCH (09:09)
[2017-03-22] MEDS: LISINOPRIL 5 MG TAB PO SCH (09:09)
[2017-03-22] MEDS: SODIUM CHLORIDE 0.9% FLUSH 10 ML FLUSH IV FLUSH SCH (09:09)
[2017-03-22] MEDS: D5-1/2 NS + KCL 20 MEQ INJ 1,000 ML IV SCH (09:09)
[2017-03-22 12:22] VITALS: BP 149/83; PULSE 69; RESP 20; TEMP 98.1; O2SAT 100
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
[2017-03-22] MEDS ORDERED: PROT40TA PO (14:26)
[2017-03-22] MEDS ORDERED: SENN1TAB PO (14:26)
[2017-03-22] MEDS ORDERED: NOVOLOGP2 SQ (14:26)
[2017-03-22] MEDS ORDERED: METO-309 PO (14:26)
--- NOTE | 2017-03-22 14:27 | HHI.DCPOC ---
Discharge Care Plan Diagnosis: (1) DM (diabetes mellitus) (2) HTN (hypertension) (3) Renal insufficiency (4) Abdominal pain (5) Vomiting (6) SBO (small bowel obstruction) (7) Partial small bowel obstruction Goals to Promote Your Health * To prevent worsening of your condition and complications * To maintain your health at the optimal level Directions to Meet Your Goals Take your medications as prescribed Follow your dietary instruction Follow activity as directed Keep your appointments as scheduled Take your immunizations and boosters as scheduled If your symptoms worsen call your PCP, if no PCP go to Urgent Care Center or Emergency Room Smoking is Dangerous to Your Health. Avoid second hand smoke Call the 24-hour hour crisis hotline for domestic abuse at Payam Johnson DO Mar 22, 2017 14:27
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
[2017-03-22 15:57] VITALS: BP 172/89; PULSE 74; RESP 20; TEMP 99.4; O2SAT 96
== END 2017-03-22 18:36 | disposition home or self-care (01) | DRG 389 ==
LOC: NEPE 23:53 → NEDA 03-15 04:04 → NEPFCDU 03-15 04:56 → OBSVTOIN 03-16 09:50 → N05A 03-17 17:13
PROVIDERS: ADMIT Hospitalist; ATTEND Hospitalist
DX: K56.5 Intestinal adhesions [bands] with obstruction (postinfection) (principal); K92.1 Melena; K76.0 Fatty (change of) liver, not elsewhere classified; I12.9 Hypertensive chronic kidney disease with stage 1 through stage 4 chronic kidney disease, or unspecified chronic kidney disease; N18.9 Chronic kidney disease, unspecified; N28.9 Disorder of kidney and ureter, unspecified; Z90.5 Acquired absence of kidney; E11.9 Type 2 diabetes mellitus without complications; Z79.4 Long term (current) use of insulin; E78.5 Hyperlipidemia, unspecified; K42.9 Umbilical hernia without obstruction or gangrene; E66.9 Obesity, unspecified; Z68.39 Body mass index [BMI] 39.0-39.9, adult
CPT/HCPCS: 71010; 74000; 74177; 80048; 80053; 81001; 82948; 83690; 85025; 85027; 85610; 85730; 94640; 96361; 96374; 96376; 99285; C9113; G0378; J1170; J1644; J1815; J1885; J2270; J2405; J3480; J7030; Q9963; Q9967

== ENCOUNTER 2017-09-29 00:22 | Inpatient (IN) | payer OTHER ==
[~2017-09-29] VITALS: Ht 175.3 cm; Wt 127.0 kg
[2017-09-29] VITALS (9 sets, daily range): BP systolic 132–205; BP diastolic 75–106; PULSE 67–98; RESP 17–20; TEMP 97.9–99.1; O2SAT 92–98
[~2017-09-29 00:22] MED LIST changes: +ASPI-183 PO; -ASPI325T PO; -COLY4000S PO; +METO-309 PO; -NORC5TAB PO; -NOVO7030P2 SQ; +NOVOLOGP2 SQ; +PROT40TA PO; +SENN1TAB PO
[2017-09-29] MEDS ORDERED: [UNRECOGNIZED DRUG - OTHER] PO (00:37)
[2017-09-29 00:59] LABS: AUTOMATED NEUTROPHIL # 7.8 TH/MM3 (1.8-7.7); BASOPHIL # 0.1 TH/MM3 (0-0.2); BASOPHIL % 0.5 % (0.0-2.0); EOSINOPHIL # 0.1 TH/MM3 (0-0.4); EOSINOPHIL % 0.7 % (0.0-4.0); HEMATOCRIT 49.6 % (39.0-51.0); HEMOGLOBIN 16.2 GM/DL (13.0-17.0); LYMPH % 14.3 % (9.0-44.0); LYMPHOCYTE # 1.5 TH/MM3 (1.0-4.8); MEAN CELL VOLUME 89.1 FL (80.0-100.0); MEAN CORPUSCULAR HEMOGLOBIN 29.2 PG (27.0-34.0); MEAN CORPUSCULAR HGB CONC 32.8 % (32.0-36.0); MEAN PLATELET VOLUME 8.9 FL (7.0-11.0); MONOCYTE # 0.8 TH/MM3 (0-0.9); NEUT % 76.5 % (16.0-70.0); PLATELET COUNT 225 TH/MM3 (150-450); RED BLOOD COUNT 5.56 MIL/MM3 (4.50-5.90); RED CELL DISTRIBUTION WIDTH 16.3 % (11.6-17.2); WHITE BLOOD COUNT 10.2 TH/MM3 (4.0-11.0)
[2017-09-29] MEDS ORDERED: SODIUM CHLOR 0.9% 1000 ML INJ 1,000 ML IV ONE (01:15)
[2017-09-29 01:28] LABS: ALBUMIN 3.6 GM/DL (3.4-5.0); ALT (GPT) 28 U/L (12-78); AST (GOT) 34 U/L (15-37); BICARBONATE 28.6 MEQ/L (21.0-32.0); BLOOD UREA NITROGEN 15 MG/DL (7-18); CALCIUM 9.5 MG/DL (8.5-10.1); CHLORIDE 105 MEQ/L (98-107); CREATININE 1.59 MG/DL (0.60-1.30); GLOMERULAR FILTRATION RATE 53 ML/MIN (>89); GLUCOSE,RANDOM 65 MG/DL (74-106); LIPASE 164 U/L (73-393); SODIUM (NA) 140 MEQ/L (136-145)
[2017-09-29 01:29] LABS: ALKALINE PHOSPHATASE 140 U/L (45-117); TOTAL BILIRUBIN ADULT 0.5 MG/DL (0.2-1.0)
[2017-09-29] MEDS ORDERED: MORPHINE SULFATE 2 MG/ML INJ IV PUSH ONE (01:30)
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
[2017-09-29] MEDS ORDERED: DIATRIZOATE MEGLUM/DIATRIZOATE SOD 9 ML CUP ONE (02:00)
[2017-09-29] MEDS ORDERED: ONDANSETRON HCL 4 MG/2 ML VIAL IV PUSH ONE (02:00)
--- NOTE | 2017-09-29 02:03 | RADRPT ---
EXAM DATE/TIME: 09/29/2017 01:26 [facility] COMPARISON: ABDOMEN FLAT & UPRIGHT, October 23, 2016, 8:33. INDICATIONS : Abdominal pain. MEDICAL HISTORY : Hypertension. Diabetes mellitus type II. SURGICAL HISTORY : Nephrectomy, right. ENCOUNTER: Initial ACUITY: 1 day PAIN SCORE: 8/10 LOCATION: Bilateral abdomen FINDINGS: Supine and upright views of the abdomen were performed. The abdominal bowel gas pattern is normal. No air fluid levels are seen. There is hazy density seen throughout the abdomen. No abnormal masses, calcifications, or organomegaly is seen. The visualized lower lungs are clear. No evidence of free intraperitoneal gas. The osseous structures are unremarkable. CONCLUSION: Dilated bowel is not seen. There is hazy density throughout the abdomen. Ascites may be present. Vaibhav Galeano MD on September 29, 2017 at 2:00 Board Certified Radiologist. This report was verified electronically.
[2017-09-29 02:25] LABS: BILIRUBIN, URINE NEG (NEG); BLOOD, URINE TRACE (NEG); GLUCOSE,URINE NEG (NEG); KETONE, URINE TRACE mg/dL (NEG); MUCUS URINE FEW /lpf (OCC); NITRITE,URINE NEG (NEG); URINE COLOR YELLOW (YELLW/STRAW); URINE LEUKOCYTE ESTERASE NEG (NEG)
[2017-09-29] MEDS ORDERED: HYDROmorphone HCL PF 2 MG/ML VIAL ONE (03:25)
[2017-09-29] MEDS ORDERED: HYDROmorphone HCL PF 1 MG/ML VIAL IV PUSH ONE ×2 (03:30→06:00)
--- NOTE | 2017-09-29 05:18 | RADRPT ---
EXAM DATE/TIME: 09/29/2017 04:42 [facility] COMPARISON: CT ABDOMEN & PELVIS W CONTRAST, October 25, 2016, 13:20. CT ABDOMEN & PELVIS W/O CONTRAST, August 29, 2016, 10:27. INDICATIONS : Abdomen pain; evaluate for obstrustion, oral contrast given 2.5 hours ago. ORAL CONTRAST: Prescribed oral contrast ingested. RADIATION DOSE: 31.29 CTDIvol (mGy) MEDICAL HISTORY : Cardiovascular disease. Hypertension. SURGICAL HISTORY : Nephrectomy, right. ENCOUNTER: Initial ACUITY: 1 day PAIN SCALE: 5/10 LOCATION: Bilateral abdomen TECHNIQUE: Volumetric scanning of the abdomen and pelvis was performed. Using automated exposure control and ad justment of the mA and/or kV according to patient size, radiation dose was kept as low as reasonably achievable to obtain optimal diagnostic quality images. DICOM format image data is available electro nically for review and comparison. FINDINGS: LOWER LUNGS: Nodular density seen in the inferior right middle lobe likely related to inflammatory change and some thickening of the anterior major fissure on the right. LIVER: There is a persistent 1.3 cm hypodensity seen at the superior aspect the right lobe of the liver. The re are also calcified granulomas seen in the liver. SPLEEN: Normal size without lesion. PANCREAS: Within normal limits. KIDNEYS: The right kidney is absent. There is a 3.8 cm cyst at the mid left kidney and a smaller 1.4 cm cyst a t the lateral aspect left mid kidney. These are better demonstrated on the prior CT examination with contrast. ADRENAL GLANDS: Within normal limits. VASCULAR: There is no aortic aneurysm. BOWEL/MESENTERY: Most of the oral contrast is in the stomach and proximal most aspect of the small bowel. The mid smal l bowel is distended measuring 3 cm. There is a transition point at the right mid abdomen where the s mall bowel clearly transitions from mildly dilated to completely decompressed. The more distal small bowel decompressed. The colon is not distended. There are some scattered colonic diverticula. There c ontinues be focally distended area of the sigmoid colon seen in the mid pelvis. This area measures 4. 6 in meters in diameter. There is prominent stool in this region. This configuration has been present on the last 2 CT examinations. Surrounding inflammatory changes not seen. ABDOMINAL WALL: Within normal limits. RETROPERITONEUM: There is no lymphadenopathy. BLADDER: No wall thickening or mass. REPRODUCTIVE: Prostatic calcifications are seen. INGUINAL: There is no lymphadenopathy or hernia. MUSCULOSKELETAL: There is degenerative change of the lumbar spine. CONCLUSION: 1. Dilated mid small bowel with a transition point in the right midabdomen concerning for some degree of small bowel obstruction. The cause of the small bowel structure in is not identified. The transit ion point tapers smoothly. 2. Persistently focally distended area of the sigmoid colon with stool. This appearance is unchanged. No inflammatory changes seen. 3. Nonspecific 1.3 cm hypodensity in the superior aspect of the liver. This likely represents a cyst or hemangioma. 4. Absent right kidney. Cysts are seen in the left kidney. 5. Minimal nodular areas in the right middle lobe likely postinflammatory change. Vaibhav Galeano MD on September 29, 2017 at 5:06 Board Certified Radiologist. This report was verified electronically.
[2017-09-29] MEDS ORDERED: SODIUM CHLOR 0.9% 1000 ML INJ 1,000 ML IV SCH (05:58)
[2017-09-29] MEDS ORDERED: NALOXONE HCL 0.4 MG/ML AMP IV PUSH PRN (06:00)
[2017-09-29] MEDS ORDERED: SODIUM CHLORIDE 0.9% FLUSH 10 ML FLUSH IV FLUSH PRN (06:00)
[2017-09-29] MEDS ORDERED: ONDANSETRON HCL 4 MG/2 ML VIAL IVP PRN (06:00)
[2017-09-29] MEDS ORDERED: GLUCAGON 1 MG/ML VIAL OTHER PRN (06:15)
[2017-09-29] MEDS ORDERED: DEXTROSE 50% IN WATER 50 ML VIAL(D50) IV PUSH PRN (06:15)
[2017-09-29] MEDS: D5-1/2 NS + KCL 20 MEQ INJ 1,000 ML IV SCH ×2 (06:32→16:02)
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
[2017-09-29] MEDS: SODIUM CHLORIDE 0.9% FLUSH 10 ML FLUSH IV FLUSH SCH ×2 (09:00→20:03)
[2017-09-29] MEDS: HYDROmorphone HCL PF 2 MG/ML VIAL IV PUSH PRN ×3 (10:07→19:52)
[2017-09-29] MEDS: ASPIRIN 325 MG TAB PO SCH (11:09)
[2017-09-29] MEDS: METOPROLOL TARTRATE 50 MG TAB PO SCH ×2 (11:09→20:03)
[2017-09-29] MEDS: DOCUSATE SODIUM 50 MG/SENNA 8.6 MG TAB PO SCH ×2 (11:10→20:02)
[2017-09-29] MEDS: PANTOPRAZOLE SOD 40 MG DELAYED RELEASE TAB PO SCH (11:10)
[2017-09-29] MEDS: LISINOPRIL 5 MG TAB PO SCH (11:10)
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
[2017-09-29] MEDS: PRAVASTATIN SOD 20 MG TAB PO SCH (20:02)
[2017-09-29] MEDS: BENZOCAINE-MENTHOL (SUGAR FREE) 15 MG-3.6 MG LOZENGE BUCCAL PRN (20:03)
[2017-09-30] VITALS: BP 129/81; PULSE 66; RESP 18; TEMP 97.9; O2SAT 98
[2017-09-30] MEDS: HYDROmorphone HCL PF 2 MG/ML VIAL IV PUSH PRN ×5 (02:18→19:34)
[2017-09-30] MEDS: D5-1/2 NS + KCL 20 MEQ INJ 1,000 ML IV SCH ×2 (02:18→15:01)
[2017-09-30 04:30] VITALS: PULSE 77; TEMP 96.6
[2017-09-30 04:31] VITALS: BP 126/76; PULSE 77; RESP 18; TEMP 96.6; O2SAT 92
[2017-09-30 07:05] LABS: AUTOMATED NEUTROPHIL # 5.7 TH/MM3 (1.8-7.7); BASOPHIL % 0.4 % (0.0-2.0); EOSINOPHIL # 0.3 TH/MM3 (0-0.4); EOSINOPHIL % 4.2 % (0.0-4.0); HEMOGLOBIN 13.2 GM/DL (13.0-17.0); LYMPH % 16.8 % (9.0-44.0); LYMPHOCYTE # 1.4 TH/MM3 (1.0-4.8); MEAN CELL VOLUME 90.6 FL (80.0-100.0); MEAN CORPUSCULAR HEMOGLOBIN 29.9 PG (27.0-34.0); MEAN PLATELET VOLUME 9.2 FL (7.0-11.0); MONO % 9.2 % (0.0-8.0); MONOCYTE # 0.8 TH/MM3 (0-0.9); NEUT % 69.4 % (16.0-70.0); PLATELET COUNT 185 TH/MM3 (150-450); RED BLOOD COUNT 4.42 MIL/MM3 (4.50-5.90); WHITE BLOOD COUNT 8.2 TH/MM3 (4.0-11.0)
[2017-09-30 07:30] LABS: BICARBONATE 26.7 MEQ/L (21.0-32.0); CALCIUM 8.4 MG/DL (8.5-10.1); CREATININE 1.43 MG/DL (0.60-1.30)
[2017-09-30 08:00] VITALS: BP 133/75; PULSE 69; RESP 19; TEMP 95.5; O2SAT 94
[2017-09-30] MEDS: ASPIRIN 325 MG TAB PO SCH (08:34)
[2017-09-30] MEDS: METOPROLOL TARTRATE 50 MG TAB PO SCH ×2 (08:34→19:33)
[2017-09-30] MEDS: LISINOPRIL 5 MG TAB PO SCH (08:34)
[2017-09-30] MEDS: SODIUM CHLORIDE 0.9% FLUSH 10 ML FLUSH IV FLUSH SCH ×2 (08:34→19:34)
[2017-09-30] MEDS: PANTOPRAZOLE SOD 40 MG DELAYED RELEASE TAB PO SCH (08:35)
[2017-09-30] MEDS: DOCUSATE SODIUM 50 MG/SENNA 8.6 MG TAB PO SCH ×2 (08:35→19:33)
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
[2017-09-30] MEDS: BENZOCAINE-MENTHOL (SUGAR FREE) 15 MG-3.6 MG LOZENGE BUCCAL PRN ×2 (08:42→19:39)
--- NOTE | 2017-09-30 08:54 | HHI.PR ---
cc: Kenneth Tucker MD Subjective Subjective Notes DAILY PROGRESS NOTE FOR SURGICAL ATTENDING, DR. KENNETH TUCKER Resting in bed Pain better today Objective Vitals/I&O Vital Signs Date Time Temp Pulse Resp B/P (MAP) Pulse Ox O2 Delivery O2 Flow Rate FiO2 09/30/17 08:00 95.5 69 19 133/75 (94) 94 09/29/17 14:27 Room Air Labs Laboratory Tests Test 09/30/17 05:27 White Blood Count 8.2 Red Blood Count 4.42 Hemoglobin 13.2 Hematocrit 40.0 Mean Corpuscular Volume 90.6 Mean Corpuscular Hemoglobin 29.9 Mean Corpuscular Hemoglobin Concent 33.0 Red Cell Distribution Width 16.0 Platelet Count 185 Mean Platelet Volume 9.2 Neutrophils (%) (Auto) 69.4 Lymphocytes (%) (Auto) 16.8 Monocytes (%) (Auto) 9.2 Eosinophils (%) (Auto) 4.2 Basophils (%) (Auto) 0.4 Neutrophils # (Auto) 5.7 Lymphocytes # (Auto) 1.4 Monocytes # (Auto) 0.8 Eosinophils # (Auto) 0.3 Basophils # (Auto) 0.0 CBC Comment DIFF FINAL Differential Comment Blood Urea Nitrogen 16 Creatinine 1.43 Random Glucose 121 Calcium Level 8.4 Sodium Level 139 Potassium Level 4.3 Chloride Level 106 Carbon Dioxide Level 26.7 Anion Gap 6 Estimat Glomerular Filtration Rate 60 Radiology Last Impressions Abdomen X-Ray 09/30/17 0600 Signed Impressions: Service Date/Time: Saturday, September 30, 2017 07:55 - CONCLUSION: Improved bowel gas pattern Vaibhav Jackson MD Abdomen/Pelvis CT 09/29/17 0000 Signed Impressions: Service Date/Time: September 04:42 - CONCLUSION: 1. Dilated mid small bowel with a transition point in the right midabdomen concerning for some degree of small bowel obstruction. The cause of the small bowel structure in is not identified. The transition point tapers smoothly. 2. Persistently focally distended area of the sigmoid colon with stool. This appearance is unchanged. No inflammatory changes seen. 3. Nonspecific 1.3 cm hypodensity in the superior aspect of the liver. This likely represents a cyst or hemangioma. 4. Absent right kidney. Cysts are seen in the left kidney. 5. Minimal nodular areas in the right middle lobe likely postinflammatory change. Vaibhav Galeano MD Cardiovascular: Regular Lungs: Clear Abdomen: Other (obese abdomen; softer on palpation today; NGT to LIWS ) Extremities: No edema A/P Assessment and Plan 67 year old male with 3 day history of abdominal pain; CT abd/pelvis visualized SBO -Clamp NGT; connect to LIWS if any n/v occur -Start sips of clear liquids -IVF -KUB today shows contrast in colon -OOB and mobilize today -Patient desires to continue non operative management Attending Statement NOTE FOR SURGICAL ATTENDING, DR. KENNETH TUCKER Patient much improved Minimal output from NG tube Abdomen much softer than yesterday KUB shows contrast in the colon I agree with above assessment and plan. The exam, history, and the medical decision-making described in the above note were completed with the assistance of the mid-level provider. I reviewed and agree with the findings presented. I attest that I had a [id number] encounter with the patient on the same day, and personally performed and documented my assessment and findings in the medical record. The following services were provided during this hospital visit: Chart data review, vital sign assessments/reviewing monitor data Review of consultations notes if present. Medication orders/review and/or management Ordering and/or reviewing lab tests Ordering and/or interpreting/reviewing x-rays and/or diagnostic studies Care of the patient and discussion of the patient with the care team Documentation time To help prompt me to consider important information that might be impacting today's encounter and assessment, information from prior notes written by myself or my colleagues may have been "brought forward/copy and pasted" into today's note. Sierra Bermudez Sep 30, 2017 08:54 Kenneth Tucker MD Sep 30, 2017 08:57
--- NOTE | 2017-09-30 11:37 | HHI.PR ---
Subjective Remarks Pt feels better. No pain at this time. No nausea or vomiting. Some flatus reported Objective Vitals Vital Signs Date Time Temp Pulse Resp B/P (MAP) Pulse Ox O2 Delivery O2 Flow Rate FiO2 09/30/17 08:00 95.5 69 19 133/75 (94) 94 09/30/17 04:31 96.6 77 18 126/76 (93) 92 09/30/17 04:30 96.6 77 09/30/17 00:00 97.9 66 18 129/81 (97) 98 09/29/17 20:03 67 09/29/17 20:00 98.2 73 18 135/89 (104) 92 09/29/17 15:20 97.9 68 17 138/88 (105) 97 09/29/17 14:27 75 17 156/75 (102) 96 Room Air I/O 09/29/17 09/29/17 09/29/17 09/30/17 09/30/17 09/30/17 07:00 15:00 23:00 07:00 15:00 23:00 Intake Total 1000 ml 0 ml 1000 ml Output Total 100 ml 400 ml Balance 1000 ml -100 ml 600 ml Intake Oral 0 ml IV Total 1000 ml 1000 ml Output Urine Total 100 ml 200 ml Gastric Drainage Total 200 ml Result Diagram: 09/30/17 0527 09/30/17 0527 Imaging Last Impressions Abdomen X-Ray 09/30/17 0600 Signed Impressions: Service Date/Time: Saturday, September 30, 2017 07:55 - CONCLUSION: Improved bowel gas pattern Vaibhav Jackson MD Abdomen/Pelvis CT 09/29/17 0000 Signed Impressions: Service Date/Time: September 04:42 - CONCLUSION: 1. Dilated mid small bowel with a transition point in the right midabdomen concerning for some degree of small bowel obstruction. The cause of the small bowel structure in is not identified. The transition point tapers smoothly. 2. Persistently focally distended area of the sigmoid colon with stool. This appearance is unchanged. No inflammatory changes seen. 3. Nonspecific 1.3 cm hypodensity in the superior aspect of the liver. This likely represents a cyst or hemangioma. 4. Absent right kidney. Cysts are seen in the left kidney. 5. Minimal nodular areas in the right middle lobe likely postinflammatory change. Vaibhav Galeano MD Objective Remarks GENERAL: AA laying in bed. NG tube in place. EYES: Extraocular motions intact. ENT: Nose without drainage. Airway patent. NECK: Trachea midline. CARDIOVASCULAR: Regular rate and rhythm without murmurs RESPIRATORY: Clear to auscultation. Breath sounds equal bilaterally. No wheezes GASTROINTESTINAL: Abdomen soft, non-tender, nondistended. No guarding. MUSCULOSKELETAL: Extremities without edema. NEUROLOGICAL: Awake and alert. Motor and sensory grossly within normal limits. Normal speech. A/P Assessment and Plan Small bowel obstruction Obesity Plan: continue pain control. Nausea control. IV hydration with normal saline at [address] abdomen and pelvis showing dilated mid small bowel pritchard with a transition point in the mid right abdomen. following and has advanced his diet to sips of clears. KUB showed contrast in colon. Clamp NGT per GS and connect to LIWS if any n/v occur encouraged OOB and mobilization on home meds. Discharge Planning advance diet per GS. Continue non op management. d/c pending clearance from Veronika Solorio MD Sep 30, 2017 11:37
[2017-09-30 16:00] VITALS: BP 135/78; PULSE 64; RESP 20; TEMP 97.7; O2SAT 93
[2017-09-30] MEDS: PRAVASTATIN SOD 20 MG TAB PO SCH (19:33)
[2017-09-30 20:00] VITALS: BP 152/92; PULSE 79; RESP 18; TEMP 99.6; O2SAT 95
[2017-10-01] VITALS (8 sets, daily range): BP systolic 127–156; BP diastolic 73–87; PULSE 67–87; RESP 18–20; TEMP 97–98.2; O2SAT 92–96
[2017-10-01] MEDS: D5-1/2 NS + KCL 20 MEQ INJ 1,000 ML IV SCH ×2 (01:16→09:03)
[2017-10-01] MEDS: HYDROmorphone HCL PF 2 MG/ML VIAL IV PUSH PRN ×3 (01:17→13:15)
[2017-10-01 07:04] LABS: BICARBONATE 27.5 MEQ/L (21.0-32.0); CALCIUM 8.8 MG/DL (8.5-10.1); CREATININE 1.29 MG/DL (0.60-1.30)
[2017-10-01] MEDS: BENZOCAINE-MENTHOL (SUGAR FREE) 15 MG-3.6 MG LOZENGE BUCCAL PRN (08:58)
[2017-10-01] MEDS: SODIUM CHLORIDE 0.9% FLUSH 10 ML FLUSH IV FLUSH SCH ×3 (09:00→20:35)
[2017-10-01] MEDS: DOCUSATE SODIUM 50 MG/SENNA 8.6 MG TAB PO SCH ×2 (09:03→20:34)
[2017-10-01] MEDS: METOPROLOL TARTRATE 50 MG TAB PO SCH ×2 (09:03→20:33)
[2017-10-01] MEDS: ASPIRIN 325 MG TAB PO SCH (09:03)
[2017-10-01] MEDS: PANTOPRAZOLE SOD 40 MG DELAYED RELEASE TAB PO SCH (09:03)
[2017-10-01] MEDS: LISINOPRIL 5 MG TAB PO SCH (09:03)
--- NOTE | 2017-10-01 10:39 | HHI.PR ---
Subjective Subjective Notes feels great, multiple BMs, no N/V. would like to try some po Objective Vitals/I&O Vital Signs Date Time Temp Pulse Resp B/P (MAP) Pulse Ox O2 Delivery O2 Flow Rate FiO2 10/01/17 08:00 97.3 77 20 150/82 (104) 95 09/29/17 14:27 Room Air Labs Laboratory Tests Test 10/01/17 06:24 Blood Urea Nitrogen 11 Creatinine 1.29 Random Glucose 126 Calcium Level 8.8 Sodium Level 139 Potassium Level 4.1 Chloride Level 104 Carbon Dioxide Level 27.5 Anion Gap 8 Estimat Glomerular Filtration Rate 68 Radiology Last Impressions Abdomen X-Ray 09/30/17 0600 Signed Impressions: Service Date/Time: Saturday, September 30, 2017 07:55 - CONCLUSION: Improved bowel gas pattern Vaibhav Jackson MD Abdomen/Pelvis CT 09/29/17 0000 Signed Impressions: Service Date/Time: September 04:42 - CONCLUSION: 1. Dilated mid small bowel with a transition point in the right midabdomen concerning for some degree of small bowel obstruction. The cause of the small bowel structure in is not identified. The transition point tapers smoothly. 2. Persistently focally distended area of the sigmoid colon with stool. This appearance is unchanged. No inflammatory changes seen. 3. Nonspecific 1.3 cm hypodensity in the superior aspect of the liver. This likely represents a cyst or hemangioma. 4. Absent right kidney. Cysts are seen in the left kidney. 5. Minimal nodular areas in the right middle lobe likely postinflammatory change. Vaibhav Galeano MD Abdomen: Non-tender, BS normal A/P Assessment and Plan PSBO clinically improved DC NG and start clears, advance as tolerated Ramón Allen MD Oct 01, 2017 10:38
--- NOTE | 2017-10-01 14:31 | HHI.PR ---
Subjective Remarks Pt feeling much better, no nausea or vomiting, no abdominal pain, tolerating clears, passing flatus and had multiple BMs today Objective Vitals Vital Signs Date Time Temp Pulse Resp B/P (MAP) Pulse Ox O2 Delivery O2 Flow Rate FiO2 10/01/17 12:00 97.8 72 20 153/81 (105) 94 10/01/17 08:00 97.3 77 20 150/82 (104) 95 10/01/17 04:12 98.0 74 18 143/81 (101) 92 10/01/17 01:47 20 10/01/17 00:00 98.0 72 18 156/87 (110) 96 09/30/17 20:00 99.6 79 18 152/92 (112) 95 09/30/17 16:00 97.7 64 20 135/78 (97) 93 I/O 09/30/17 09/30/17 09/30/17 10/01/17 10/01/17 10/01/17 07:00 15:00 23:00 07:00 15:00 23:00 Intake Total 1000 ml 1558 ml Output Total 400 ml 825 ml 850 ml Balance 600 ml 733 ml -850 ml Intake Oral 1558 ml IV Total 1000 ml Output Urine Total 200 ml 775 ml 850 ml Gastric Drainage Total 200 ml 50 ml # Bowel Movements 1 Result Diagram: 09/30/17 0527 10/01/17 0624 Imaging Last Impressions Abdomen X-Ray 09/30/17 0600 Signed Impressions: Service Date/Time: Saturday, September 30, 2017 07:55 - CONCLUSION: Improved bowel gas pattern Vaibhav Jackson MD Abdomen/Pelvis CT 09/29/17 0000 Signed Impressions: Service Date/Time: September 04:42 - CONCLUSION: 1. Dilated mid small bowel with a transition point in the right midabdomen concerning for some degree of small bowel obstruction. The cause of the small bowel structure in is not identified. The transition point tapers smoothly. 2. Persistently focally distended area of the sigmoid colon with stool. This appearance is unchanged. No inflammatory changes seen. 3. Nonspecific 1.3 cm hypodensity in the superior aspect of the liver. This likely represents a cyst or hemangioma. 4. Absent right kidney. Cysts are seen in the left kidney. 5. Minimal nodular areas in the right middle lobe likely postinflammatory change. Vaibhav Galeano MD Objective Remarks GENERAL: AA laying in bed. EYES: Extraocular motions intact. ENT: Nose without drainage. Airway patent. NECK: Trachea midline. CARDIOVASCULAR: Regular rate and rhythm without murmurs RESPIRATORY: Clear to auscultation. Breath sounds equal bilaterally. No wheezes GASTROINTESTINAL: Abdomen soft, non-tender, nondistended. No guarding. MUSCULOSKELETAL: Extremities without edema. NEUROLOGICAL: Awake and alert. Motor and sensory grossly within normal limits. Normal speech. A/P Assessment and Plan Small bowel obstruction Obesity Plan: continue pain control. Nausea control. IV hydration with normal saline at [address] abdomen and pelvis showing dilated mid small bowel pritchard with a transition point in the mid right abdomen.GS following and has advanced his diet to sips of clears. KUB showed contrast in colon. GS has d/c NG tube, advanced diet to clears and pt thus far tolerating it well and per GS ok to advance diet to regular for dinner. encouraged OOB and mobilization on home meds. Discharge Planning advance diet per GS. Continue non op management. d/c pending clearance from GS, anticipate d/c in 1-2 days Veronika Solorio MD Oct 01, 2017 14:31
[2017-10-01] MEDS: oxyCODONE/ACETAMINOPHEN 5 MG/325 MG TAB PO PRN (18:37)
[2017-10-01] MEDS: PRAVASTATIN SOD 20 MG TAB PO SCH (20:34)
[2017-10-02] VITALS: BP 133/79; PULSE 64; PULSE 65; RESP 20; TEMP 98.4; O2SAT 96
[2017-10-02 04:00] VITALS: BP 151/81; PULSE 60; RESP 20; TEMP 97.3; O2SAT 95
[2017-10-02] MEDS: oxyCODONE/ACETAMINOPHEN 5 MG/325 MG TAB PO PRN (06:54)
[2017-10-02 08:00] VITALS: BP 147/85; PULSE 68; RESP 19; TEMP 97.6; O2SAT 95
[2017-10-02] MEDS: ASPIRIN 325 MG TAB PO SCH (08:38)
[2017-10-02] MEDS: METOPROLOL TARTRATE 50 MG TAB PO SCH (08:38)
[2017-10-02] MEDS: PANTOPRAZOLE SOD 40 MG DELAYED RELEASE TAB PO SCH (08:38)
[2017-10-02] MEDS: DOCUSATE SODIUM 50 MG/SENNA 8.6 MG TAB PO SCH (08:38)
[2017-10-02] MEDS: SODIUM CHLORIDE 0.9% FLUSH 10 ML FLUSH IV FLUSH SCH (08:39)
[2017-10-02] MEDS: LISINOPRIL 5 MG TAB PO SCH (08:39)
--- NOTE | 2017-10-02 10:55 | HHI.PR ---
Subjective Subjective Notes feels back to normal, +BM, tolerating PO Objective Vitals/I&O Vital Signs Date Time Temp Pulse Resp B/P (MAP) Pulse Ox O2 Delivery O2 Flow Rate FiO2 10/02/17 08:00 97.6 68 19 147/85 (105) 95 09/29/17 14:27 Room Air Radiology Last Impressions Abdomen X-Ray 09/30/17 0600 Signed Impressions: Service Date/Time: Saturday, September 30, 2017 07:55 - CONCLUSION: Improved bowel gas pattern Vaibhav Jackson MD Abdomen/Pelvis CT 09/29/17 0000 Signed Impressions: Service Date/Time: September 04:42 - CONCLUSION: 1. Dilated mid small bowel with a transition point in the right midabdomen concerning for some degree of small bowel obstruction. The cause of the small bowel structure in is not identified. The transition point tapers smoothly. 2. Persistently focally distended area of the sigmoid colon with stool. This appearance is unchanged. No inflammatory changes seen. 3. Nonspecific 1.3 cm hypodensity in the superior aspect of the liver. This likely represents a cyst or hemangioma. 4. Absent right kidney. Cysts are seen in the left kidney. 5. Minimal nodular areas in the right middle lobe likely postinflammatory change. Vaibhav Galeano MD Cardiovascular: Regular Lungs: Clear Abdomen: Non-distended, Non-tender A/P Assessment and Plan 67yo male with adhesive SBO, resolved, stable. tolerating PO, NO pain, +BM ok to DC from surgery standpoint, follow with surgery PRN Claudio Sethi MD Oct 02, 2017 10:55
[2017-10-02 12:00] VITALS: BP 128/70; PULSE 77; RESP 19; TEMP 98.2; O2SAT 93
--- NOTE | 2017-10-02 14:01 | HHI.DS ---
Discharge Summary Admission Date Sep 29, 2017 at 06:18 Discharge Date: Oct 02, 2017 Admitting Diagnosis SBO (1) SBO (small bowel obstruction) ICD Code: K56.69 - Other intestinal obstruction Status: Acute Procedures one Brief History - From Admission History from patient, ER physician communication, and review of medical records. Patient reported that for the past 3 days, he has been having diffuse abdominal pain. Denies any nausea or vomiting. Denies diarrhea or constipation. He however noticed that his stool is less and less. Denies fever. He reports he decided to come to hospital because he has had prior history of obstructions. drove him here. In the emergency room, patient's imaging studies indeed reveal small bowel obstruction. CBC/BMP: 09/30/17 0527 10/01/17 0624 Significant Findings Laboratory Tests Test 09/30/17 05:27 10/01/17 06:24 Red Blood Count 4.42 MIL/MM3 (4.50-5.90) Monocytes (%) (Auto) 9.2 % (0.0-8.0) Eosinophils (%) (Auto) 4.2 % (0.0-4.0) Creatinine 1.43 MG/DL (0.60-1.30) Random Glucose 121 MG/DL (74-106) 126 MG/DL (74-106) Calcium Level 8.4 MG/DL (8.5-10.1) Estimat Glomerular Filtration Rate 60 ML/MIN (>89) 68 ML/MIN (>89) PE at Discharge GENERAL: AA laying in bed. EYES: Extraocular motions intact. ENT: Nose without drainage. Airway patent. NECK: Trachea midline. CARDIOVASCULAR: Regular rate and rhythm without murmurs RESPIRATORY: Clear to auscultation. Breath sounds equal bilaterally. No wheezes GASTROINTESTINAL: Abdomen soft, non-tender, nondistended. No guarding. MUSCULOSKELETAL: Extremities without edema. NEUROLOGICAL: Awake and alert. Motor and sensory grossly within normal limits. Normal speech. Pt update on day of discharge Pt feeling well. Tolerating a diet. had a BM yesterday, no nausea or vomiting. Hospital Course Pt was admitted for SOB. CT abdomen and pelvis showing dilated mid small bowel pritchard with a transition point in the mid right abdomen.GS evaluated and followed the pt. KUB showed contrast in colon. Diet was slowly advance and pt tolerated it well. +flatus and BM prior to discharge. Pt was cleared by GS for discharge. f/u w them as needed. Mild HARMONY resolved prior to d/c s/p IVFs Pt Condition on Discharge: Stable Discharge Disposition: Discharge Home Discharge Time: > 30 minutes Discharge Instructions DIET: Follow Instructions for: As Tolerated, No Restrictions Activities you can perform: Regular-No Restrictions Follow up Referrals: PCP Follow-up - 1 Week Surgical - 2 Weeks Continued Medications: Albuterol 18 GM Inh (Ventolin Hfa 18 GM Inh) 90 Mcg/Act Aer 2 PUFF INH Q4-6H PRN for SHORTNESS OF BREATH, #1 INHALER 0 Refills Amlodipine (Amlodipine) 10 Mg Tab 10 MG PO DAILY for Blood Pressure Management, #30 TAB 0 Refills Aspirin (Aspirin) 325 Mg Tab 325 MG PO DAILY, #30 TAB 0 Refills Insulin Aspart Inj (Novolog Inj) 1,000 Unit/10 Ml Vial 1-9 UNITS SQ ACHS for Blood Sugar Management, #10 ML 0 Refills Max dose at bedtime:( )units; sugars less than 70,(0)units; sugars 150-199,(1) unit; sugars 200-249,(3) units; sugars 250-299,(5) units; sugars 300-349,(7) units; sugars greater than 349,(9) units Lisinopril (Lisinopril) 2.5 Mg Tab 2.5 MG PO DAILY, #30 TAB 0 Refills Metoprolol Tartrate (Lopressor) 50 Mg Tab 50 MG PO Q12HR for Blood Pressure Management, #60 TAB Ondansetron Liq (Zofran Liq) 4 Mg/5 Ml Soln 4 MG PO Q6HR PRN for NAUSEA OR VOMITING, #7 ML 0 Refills Pantoprazole (Protonix) 40 Mg Tab 40 MG PO DAILY for Reflux, #30 TAB 0 Refills Pravastatin (Pravastatin) 20 Mg Tab 20 MG PO HS for Cholesterol Management, #30 TAB 0 Refills Sennosides-Docusate Sodium (Senna Plus 8.6-50 mg) 1 Tab Tab 2 TAB PO BID for Constipation, #60 TAB [Gout medication] () 1 TAB PO DAILY Veronika Solorio MD Oct 02, 2017 14:01
== END 2017-10-02 16:14 | disposition home or self-care (01) | DRG 389 ==
LOC: NEPC 00:22 → NEDA 06:18 → N07B 14:44
PROVIDERS: ADMIT Hospitalist; ATTEND Hospitalist
PROC: 0D9670Z Drainage of Stomach with Drainage Device, Via Natural or Artificial Opening (ICD-10-PCS; principal; 2017-09-29)
DX: K56.51 Intestinal adhesions [bands], with partial obstruction (principal); Z68.41 Body mass index [BMI] 40.0-44.9, adult; N17.9 Acute kidney failure, unspecified; I10 Essential (primary) hypertension; E11.9 Type 2 diabetes mellitus without complications; E66.9 Obesity, unspecified; E78.00 Pure hypercholesterolemia, unspecified; M19.90 Unspecified osteoarthritis, unspecified site; G47.30 Sleep apnea, unspecified; Z90.5 Acquired absence of kidney; Z79.4 Long term (current) use of insulin
CPT/HCPCS: 74018; 74019; 74176; 80048; 80053; 81001; 83690; 85025; 96361; 96374; 96375; J1170; J2270; J2405; J3480; J7030; Q9963

== ENCOUNTER 2018-09-08 16:01 | Observation (INO) ==
[2018-09-08] MEDS ORDERED: Morphine Inj 4 MG/ML Vial IV.PUSH ONE ×3 (17:01→20:19)
[2018-09-08 17:58] LABS: Baso % (Auto) 0.3 % (0.0-2.0); Eos # (Auto) 0.1 th/mm3 (0.0-0.4); Eos % (Auto) 1.4 % (0.0-4.0); Hematocrit 49.6 % (39.0-51.0); Hemoglobin 16.2 gm/dL (13.0-17.0); Lymph # (Auto) 1.5 th/mm3 (1.0-4.8); Lymph % (Auto) 17.6 % (9.0-44.0); Mean Corpuscular HGB Conc 32.7 % (32.0-36.0); Mean Corpuscular Hemoglobin 29.2 pg (27.0-34.0); Mean Corpuscular Volume 89.2 fL (80.0-100.0); Mean Platelet Volume 8.9 fL (7.0-11.0); Mono # (Auto) 0.7 th/mm3 (0.0-0.9); Mono % (Auto) 7.9 % (0.0-8.0); Neut # (Auto) 6.1 th/mm3 (1.8-7.7); Neut % (Auto) 72.8 % (16.0-70.0); Platelet Count 206 th/mm3 (150-450); Red Blood Count 5.56 mil/mm3 (4.50-5.90); Red Cell Distribution Width 16.7 % (11.6-17.2); White Blood Count 8.3 th/mm3 (4.0-11.0)
[2018-09-08] MEDS ORDERED: Sodium Chlor 0.9% Inj 500 ML IV.SIG SCH (18:00)
[2018-09-08 18:06] LABS: Bilirubin,Urine Negative (Negative); Clarity,Urine Clear (Clear); Color,Urine Yellow (Yellw/Straw); Glucose,Urine (UA) Negative (Negative); Leukocyte Esterase,Urine Negative (Negative); Mucus,Urine Few /lpf (Occasional); Nitrite,Urine Negative (Negative); Specific Gravity,Urine 1.014 (1.002-1.035)
[2018-09-08 18:10] LABS: Prothrombin Time 9.7 sec (9.8-11.6)
[2018-09-08 18:35] LABS: Alanine Aminotransferase 38 U/L (12-78); Albumin 3.6 g/dL (3.4-5.0); Alkaline Phosphatase 136 U/L (45-117); Anion Gap 7 meq/L (5-15); Aspartate Aminotransferase 44 U/L (15-37); Blood Urea Nitrogen 12 mg/dL (7-18); Calcium 9.3 mg/dL (8.5-10.1); Carbon Dioxide 28.3 meq/L (21.0-32.0); Chloride 106 meq/L (98-107); Glomerular Filtration Rate 53 mL/min (>89); Glucose,Random 56 mg/dL (74-106); Lipase 117 U/L (73-393); Magnesium 2.2 mg/dL (1.5-2.5); Potassium 4.9 meq/L (3.5-5.1); Sodium 141 meq/L (136-145)
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
--- NOTE | 2018-09-08 20:58 | CT ---
EXAM DATE: 09/08/2018 8:47 PM EST AGE/SEX: 68 years / Male INDICATIONS: Abdominal pain. CLINICAL DATA: This is the patient's initial encounter. Patient reports that signs and symptoms have been present for 2 days and indicates a pain score of 8/10. MEDICAL/SURGICAL HISTORY: Diabetes. Hypertension. None. ORAL CONTRAST: No oral contrast ingested. RADIATION DOSE: 22.30 CTDI (mGy) [place] [facility] [place] 09/29/2017. . TECHNIQUE: Multiple contiguous axial images were obtained through the abdomen and pelvis following b olus infusion of 90 ml Omnipaque 350 (iohexol) nonionic water-soluble contrast as a single exam dos e. No oral contrast ingested. Using automated exposure control and adjustment of the mA and/or kV ac cording to patient size, radiation dose was kept as low as reasonably achievable to obtain optimal di agnostic quality images. DICOM format image data is available electronically for review and comparis on. FINDINGS: LOWER LUNGS: The visualized lower lungs are clear. LIVER: Stable 11 mm hypodense lesion in the superior right lobe near the dome. Mild diffusely decrea sed hepatic attenuation. SPLEEN: Homogeneous density without enlargement. PANCREAS: Unremarkable without mass or calcification. KIDNEYS: Absent right kidney. Left kidney demonstrates normal enhancement with 2 adjacent cysts in t he mid kidney stable from previous exam. Largest measures 3.9 cm. No radiopaque renal calculi or hydr onephrosis. ADRENAL GLANDS: Unremarkable. AORTA: Doris-aneurysmal. BOWEL/MESENTERY: Appendix is visualized and appears normal in appearance. However, there is subtle p eriappendiceal stranding. Several loops of marginal nondilated fluid-filled small bowel in the lower abdomen with relative transition point in the right lower quadrant, likely proximal to mid ileum. No free fluid or drainable fluid collections. No pneumatosis or free air. ABDOMINAL WALL: Intact. RETROPERITONEUM: No evidence of adenopathy in the retrocrural, para-aortic, or deep pelvic regions. BLADDER: Contours are smooth. REPRODUCTIVE: No abnormal masses or calcifications seen. BONY STRUCTURES: Degenerative spondylosis of the lower lumbar spine. CONCLUSION: 1. Normal-appearing appendix. However, there is subtle periappendiceal stranding. Although this find ing is nonspecific and of uncertain clinical significance, cannot exclude partially treated or very acute developing appendicitis in the appropriate clinical setting. Clinical correlation is recommende d. 2. Nondistended but marginal fluid filled loops of small bowel in the lower abdomen with relative tr ansition point in the right lower quadrant. This finding is also very nonspecific and may reflect ent eritis. Differential considerations include developing adynamic ileus and less likely developing part ial small bowel obstruction. 3. Stable ancillary findings, as above. Electronically signed by: Kamari Alberto MD Board Certified Radiologist 09/08/2018 8:56 PM [facility] T
[2018-09-08] MEDS ORDERED: Acetaminophen 325 MG Tablet PO PRN ×2 (22:21→22:40)
[2018-09-08] MEDS ORDERED: Bisacodyl 10 MG Supp RECTAL PRN (22:21)
[2018-09-08] MEDS ORDERED: Heparin - SQ 10,000 UNITS/ML Vial SQ SCH (22:30)
[2018-09-08] MEDS ORDERED: Sod Chloride 0.9% Inj 1,000 ML IV.CONT SCH ×2 (22:30→22:45)
[2018-09-08] MEDS ORDERED: Pantoprazole Inj 40 MG Vial IV.PUSH ONE (22:48)
--- NOTE | 2018-09-08 23:35 | P.HP ---
History of Present Illness Service: [facility] Primary Care Physician: [facility] History of Present Illness: 68-year-old male with a past medical history significant for hypertension, hyperlipidemia and diabetes mellitus presents to the emergency department for the evaluation of abdominal pain. The patient reports a history of small bowel obstructions in the past. He denies any nausea or vomiting today. He states he had "gas pains." He has been passing gas and last bowel movement was earlier this morning. He has been tolerating p.o. without difficulty. He was given morphine x2 in the emergency department with complete resolution of his symptoms. At the time of our interview, the patient requests discharge to home. He denies any chest pain or shortness of breath. No fever/chills. No focal neurologic deficits. Inpatient Certification: I certify that the inpatient services were ordered in accordance with Medicare regulations governing the order. This includes certification that hospital inpatient services are reasonable and necessary and in the case of services not specified as inpatient-only under 42 CFR 419.22(n), that they are appropriately provided as inpatient services in accordance to with the 2-midnight benchmark under 43 CFR 412.3(e) Estimated Total Length of Stay (Days): 4 Plans for Post Hospital Care: Home Review of Systems All other systems reviewed negative except as stated in HPI [facility] - History History Provided By: Patient - Medical History Medical History: Medical History (Last Updated 09/08/18 @ 23:32 by Loren Su MD) Arthritis Chronic low back pain Diabetes HTN (hypertension) Hx of constipation Hyperlipidemia Status post nephrectomy - Family History Family History: Family History (Last Updated 09/08/18 @ 23:32 by Loren Su MD) Other Family history unknown - Tobacco History Smoking Status: Former smoker Tobacco Type: Cigarettes - Alcohol History How Often Do You Have a Drink Containing Alcohol: Never - Substance Use History Substance History: No History of Abuse - Travel History Recent Travel in the [place] Within the Last 8 Weeks: No Recent Travel Out of the Country Within the Last 8 Weeks: No - Immunization History Tetanus Immunization: >5 Years Medications and Allergies Active Medications: Active Medications Acetaminophen (Tylenol) 650 mg PO Q4H PRN PRN Reason: Temp > 100.4 Sodium Chloride (Ns Inj) 1,000 mls @ 100 mls/hr IV.CONT .Q10H DEEPIKA Ondansetron HCl (Zofran Inj) 4 mg IV.PUSH Q6H PRN PRN Reason: NAUSEA OR VOMITING Sennosides (Senokot) 17.2 mg PO Q12H PRN PRN Reason: Moderate Constipation Sodium Chloride (Ns Flush) 2 ml IV.FLUSH PRN PRN PRN Reason: FLUSH AFTER USING IV ACCESS Last Admin: 09/08/18 17:18 Dose: 2 ml Sodium Chloride (Ns Flush) 2 ml IV.FLUSH BID DEEPIKA Sodium Chloride (Ns Flush) 2 ml IV.FLUSH PRN PRN PRN Reason: FLUSH AFTER USING IV ACCESS Allergies Allergy/AdvReac Type Severity Reaction Status Date / Time No Known Allergies Allergy Verified 09/08/18 16:52 Home Medications Medication Instructions Recorded Confirmed Type Unable to Obtain Home Meds 09/08/18 09/08/18 History Exam Vital signs: Vital Signs 09/08/18 16:10 09/08/18 16:51 09/08/18 18:33 Temperature 98.4 F Pulse Rate 100 H 96 H 97 H Respiratory Rate 18 18 18 Blood Pressure 198/109 H 197/98 H 180/106 H Pulse Oximetry 94 L 97 100 09/08/18 19:33 09/08/18 20:18 Temperature Pulse Rate 96 H Respiratory Rate 18 14 Blood Pressure 184/99 H Pulse Oximetry 97 Intake & Output 09/08/18 09/08/18 09/09/18 06:59 18:59 06:59 Intake Total 500 / 500 Balance 500 / 500 Weight 122.47 kg Intake: IV 500 / 500 NS Inj 500 ML @ 1000 mls/hr IV. 500 / 500 SIG [facility] Rx#:[id number] Narrative: Gen.: No acute distress Head: Normocephalic. Atraumatic. EENT: Pupils equal round and reactive to light. Nose without drainage. Airway intact. Throat without injection. Cardiovascular: Regular rate and rhythm. No murmurs, rubs or gallops. Respiratory: Lungs clear to auscultation bilaterally. No wheezes or rhonchi. Abdomen: Soft, nontender, nondistended. No peritoneal signs. Musculoskeletal: No gross deformities. No edema. Skin: No obvious rashes or erythema. Neuro: Sensory and motor grossly intact. Cranial nerves II through XII grossly intact. Results - Labs CBC & Chem 7: 09/08/18 17:20 09/08/18 17:20 Labs: Laboratory Results - last 24 hr 09/08/18 09/08/18 09/08/18 17:20 17:20 17:20 WBC 8.3 RBC 5.56 Hgb 16.2 Hct 49.6 MCV 89.2 MCH 29.2 MCHC 32.7 RDW 16.7 Plt Count 206 MPV 8.9 Neut % (Auto) 72.8 H Lymph % (Auto) 17.6 Victoria % (Auto) 7.9 Eos % (Auto) 1.4 Baso % (Auto) 0.3 Neut # (Auto) 6.1 Lymph # (Auto) 1.5 Victoria # (Auto) 0.7 Eos # (Auto) 0.1 Baso # (Auto) 0.0 WBC Differential . Differential Comment Auto diff final PT 9.7 L INR 1.0 APTT 32.0 H Sodium 141 Potassium 4.9 Chloride 106 Carbon Dioxide 28.3 Anion Gap 7 BUN 12 Creatinine 1.58 H Estimated GFR 53 L Random Glucose 56 L Lactic Acid Calcium 9.3 Magnesium 2.2 Total Bilirubin 0.6 AST 44 H ALT 38 Alkaline Phosphatase 136 H Total Protein 9.0 H Albumin 3.6 Lipase 117 Urine Color Urine Clarity Urine pH Ur Specific [place] Urine Protein Urine Glucose (UA) Urine Ketones Urine Occult Blood Urine Nitrate Urine Bilirubin Urine Urobilinogen Ur Leukocyte Esterase Urine RBC Urine WBC Urine Mucus Micro UA Comment Ur Microscopic Review Urine Culture Comments 09/08/18 09/08/18 17:20 17:50 WBC RBC Hgb Hct MCV MCH MCHC RDW Plt Count MPV Neut % (Auto) Lymph % (Auto) [place] % (Auto) Eos % (Auto) Baso % (Auto) Neut # (Auto) Lymph # (Auto) [place] # (Auto) Eos # (Auto) Baso # (Auto) WBC Differential Differential Comment PT INR APTT Sodium Potassium Chloride Carbon Dioxide Anion Gap BUN Creatinine Estimated GFR Random Glucose Lactic Acid 1.2 Calcium Magnesium Total Bilirubin AST ALT Alkaline Phosphatase Total Protein Albumin Lipase Urine Color Yellow Urine Clarity Clear Urine pH 6.0 Ur Specific [place] 1.014 Urine Protein 500 or greater Urine Glucose (UA) Negative Urine Ketones Negative Urine Occult Blood Small H Urine Nitrate Negative Urine Bilirubin Negative Urine Urobilinogen Less than 2 Ur Leukocyte Esterase Negative Urine RBC 2 Urine WBC 1 Urine Mucus Few H Micro UA Comment Culture not ind Ur Microscopic Review Not Reportable Urine Culture Comments Culture not ind - Imaging Impressions Abdomen/Pelvis CT 09/08/18 17:01 CONCLUSION: 1. Normal-appearing appendix. However, there is subtle periappendiceal stranding. Although this finding is nonspecific and of uncertain clinical significance, cannot exclude partially treated or very acute developing appendicitis in the appropriate clinical setting. Clinical correlation is recommended. 2. Nondistended but marginal fluid filled loops of small bowel in the lower abdomen with relative transition point in the right lower quadrant. This finding is also very nonspecific and may reflect enteritis. Differential considerations include developing adynamic ileus and less likely developing partial small bowel obstruction. 3. Stable ancillary findings, as above. Caprini VTE Risk Assessment Caprini VTE Risk Assessment: No/Low Risk (score <= 1) Caprini Risk Assessment Model: Point Value = 1 Point Value = 2 Point Value = 3 Point Value = 5 Age 41-60 Minor surgery BMI > 25 kg/m2 Swollen legs Varicose veins or History of unexplained or recurrent spontaneous Oral contraceptives or hormone replacement Sepsis (< 1 month) Serious lung disease, including pneumonia (< 1 month) Abnormal pulmonary function Acute myocardial infarction Congestive heart failure (< 1 month) History of inflammatory bowel disease Medical patient at bed rest Age 61-74 Arthroscopic surgery Major open surgery (> 45 min) Laparoscopic surgery (> 45 min) Malignancy Confined to bed (> 72 hours) Immobilizing plaster cast Central venous access Age >= 75 History of VTE Family history of VTE Factor V Leiden Prothrombin [id number] Lupus anticoagulant Anticardiolipin antibodies Elevated serum homocysteine Heparin-induced thrombocytopenia Other congenital or acquired thrombophilia Stroke (< 1 month) Elective arthroplasty Hip, pelvis, or leg fracture Acute spinal cord injury (< 1 month) Prophylaxis Regimen: Total Risk Factor Score Risk Level Prophylaxis Regimen 0-1 Low Early ambulation 2 Moderate Order ONE of the following: *Sequential Compression Device (SCD) *Heparin 5000 units SQ BID 3-4 Higher Order ONE of the following medications: *Heparin 5000 units SQ TID *Enoxaparin/Lovenox 40 mg SQ daily (WT < 150 kg, CrCl > 30 mL/min) *Enoxaparin/Lovenox 30 mg SQ daily (WT < 150 kg, CrCl > 10-29 mL/min) *Enoxaparin/Lovenox 30 mg SQ BID (WT < 150 kg, CrCl > 30 mL/min) AND/OR *Sequential Compression Device (SCD) 5 or more Highest Order ONE of the following medications: *Heparin 5000 units SQ TID (Preferred with Epidurals) *Enoxaparin/Lovenox 40 mg SQ daily (WT < 150 kg, CrCl > 30 mL/min) *Enoxaparin/Lovenox 30 mg SQ daily (WT < 150 kg, CrCl > 10-29 mL/min) *Enoxaparin/Lovenox 30 mg SQ BID (WT < 150 kg, CrCl > 30 mL/min) AND *Sequential Compression Device (SCD) Assessment and Plan - Plan Assessment/plan: 1. Abdominal pain CT of the abdomen/pelvis shows nondistended but marginal fluid-filled loops of small bowel in the lower abdomen with relative transition point in the right lower quadrant. Finding is nonspecific and may reflect enteritis versus developing ileus versus developing partial small bowel obstruction Discussed the patient's CT findings with him, he would like to go home. He is tolerating p.o. and has no abdominal pain. Last bowel movement was this morning. Positive flatus. He will return to the emergency department if his symptoms return or worsen 2. Chronic medical conditions Continue home medications and outpatient follow-up
== END 2018-09-08 23:57 | disposition home or self-care (01) ==
LOC: NEPC 16:01 → NEDA 16:01
PROVIDERS: ADMIT Family Medicine; ATTEND Family Medicine
DX: F17.210 Nicotine dependence, cigarettes, uncomplicated; Z90.5 Acquired absence of kidney; M54.5 Low back pain; E11.9 Type 2 diabetes mellitus without complications; E78.5 Hyperlipidemia, unspecified; M19.90 Unspecified osteoarthritis, unspecified site; I10 Essential (primary) hypertension; G89.29 Other chronic pain; R10.9 Unspecified abdominal pain
CPT/HCPCS: 74177; 80053; 81001; 83605; 83690; 83735; 85025; 85610; 85730; 90761; 90774; 90775; 90776; 90784; 96361; 96374; 96375; 96376; 99285; C8952; G0378; J2270; J2405; J7040; Q9967